=== PATIENT | male | born 1945 | race Caucasian/White ===

== ENCOUNTER 2016-08-09 15:37 | Inpatient (IN) | payer MEDICARE ==
--- NOTE | ~2016-08-09 | CR71 ---
[facility] A Service of [facility] & [facility] RADIOLOGY TEXT RESULTS PATIENT: ANDREIA TEE LOCATION: [address] : 43 UNIT #: [id number] AGE: [address]: Raymundo Rich MD SEX: M ORDER DR: [id number] [facility] [address] [facility]. [place], [place] [address] [id number] I MR#: [id number] Acc #: [id number] NAME: ANDREIA TEE : 1945 SEX: M STUDY DATE/TIME: 08/14/2016 4:22 UNIT: [facility] ROOM: [facility] STUDY DESCRIPTION: CR Chest Single View Attending Physician: Connie Molina M.D. Ordering Physician: Ed Doctor [id number] [facility] Primary Care Physician: Denia Bennett M.D. MEDICAL IMAGING REPORT This report is preliminary unless electronic signature is present EXAM Portable AP view of the chest COMPARISON August 13, 2016 and August 12, 2016 INDICATIONS 71-year-old male with acute respiratory failure for 5 days, requiring ventilatory support. FINDINGS/IMPRESSION Endotracheal tube is very high-riding with the tip located 9.6 cm above the david. Feeding tube not traced below level of the stomach where passes off the bottom aspect of the image. The right upper extremity PICC terminates in the SVC. No evidence of pneumothorax. There are low lung volumes with slightly increased plate-like opacities in the right lung base favoring atelectasis. Stable left basilar atelectasis versus pneumonia. Cardiomediastinal silhouette is likely within normal limits for portable technique and low lung volumes. There may be persistent small left pleural effusion. The findings of high-riding endotracheal tube were relayed to the patient's nurse at the time of this dictation. Dictated by... Ismael Chris M.D. THIS IS AN ELECTRONICALLY VERIFIED REPORT Ismael Chris M.D. at 08/19/2016 9:23 AM Paulina TD: 08/14/2016 06:24 JOB #: [id number] [facility] A Service of [facility] & [facility] RADIOLOGY TEXT RESULTS PATIENT: ANDREIA TEE LOCATION: CICCU2 CICCU2-09 : 43 UNIT #: [id number] AGE: [address]: Raymundo Rich MD SEX: M ORDER DR: MEDICAL IMAGING REPORT COPY
--- NOTE | ~2016-08-09 | XA166 ---
[facility] A Service of [facility] & [facility] RADIOLOGY TEXT RESULTS PATIENT: ANDREIA TEE LOCATION: [address] : 43 UNIT #: [id number] AGE: [address]: Raymundo Rich MD SEX: M ORDER DR: [id number] [place] [id number] [facility]. [place], [place] [address] [id number] I MR#: [id number] Acc #: [id number] NAME: ANDREIA TEE : 1945 SEX: M STUDY DATE/TIME: 08/19/2016 14:41 UNIT: [facility] ROOM: [facility] STUDY DESCRIPTION: XA PICC Line Placement WO Port Attending Physician: Raymundo Rich M.D. Ordering Physician: Osvaldo Haney M.D. Primary Care Physician: Denia Bennett M.D. MEDICAL IMAGING REPORT This report is preliminary unless electronic signature is present EXAM PICC line insertion, 08/19/2016 HISTORY IV access needed. PRE-PROCEDURE The procedure was explained to the patient and/or patient patient registration representative including risks, benefits, potential complications and potential for alternative forms of treatment. Informed consent was obtained, and prior to initiating the procedure a formal timeout procedure was performed. PROCEDURE Using full standard sterile barrier technique, including caps, gowns, gloves, masks, as well as sterile skin preparation and standard sterile draping, the right arm was prepped and draped in the usual fashion, and real-time sterile ultrasound guidance was used to localize an arm vein and to confirm vessel patency. A hard copy ultrasound image was recorded. After local anesthesia with 1% Xylocaine, the vein was punctured using real-time sterile ultrasound guidance, and an 0.018 guidewire was advanced into the superior vena cava, using fluoroscopic guidance. A 5 Citizen Of [place] dual-lumen PICC was then measured and deployed with the tip positioned in the superior vena cava. The position of the line was documented with a radiographic image. The line was secured in place with an adhesive dressing and an antibiotic patch was applied. Total fluoro time was 0.1 minutes. Single spot image. IMPRESSION Successful placement of a Citizen [place] lumen PowerPICC via the arm under ultrasound and fluoroscopic guidance. The tip of the PICC is in good position in the superior vena cava. [facility] A Service of [facility] RADIOLOGY TEXT RESULTS PATIENT: ANDREIA TEE LOCATION: CICCU2 CICCU2-09 : 43 UNIT #: [id number] AGE: [address]: Raymundo Rich MD SEX: M ORDER DR: Dictated by... Paul Dean M.D. THIS IS AN ELECTRONICALLY VERIFIED REPORT Paul Dean M.D. at 08/20/2016 11:48 AM EVON/maria esther TD: 08/20/2016 05:31 JOB #: [id number] MEDICAL IMAGING REPORT COPY
--- NOTE | ~2016-08-09 | CR7 ---
[facility] A Service of [facility] & [facility] RADIOLOGY TEXT RESULTS PATIENT: ANDREIA TEE LOCATION: [facility] 338-01 : 43 UNIT #: [id number] AGE: [address]: Connie Molina MD SEX: M ORDER DR: [id number] [facility] [address] [facility]. [place], [place] [address] [id number] I MR#: [id number] Acc #: [id number] NAME: ANDREIA TEE : 1945 SEX: M STUDY DATE/TIME: 08/24/2016 10:27 [facility]: [facility] STUDY DESCRIPTION: CR Abdomen Single AP View Attending Physician: Connie Molina M.D. Ordering Physician: Connie Molina M.D. Primary Care Physician: Denia Bennett M.D. MEDICAL IMAGING REPORT This report is preliminary unless electronic signature is present EXAM AP of the abdomen INDICATIONS 71-year-old male with abdominal distension for 2 days. Compared with 08/12/2016. FINDINGS Dobbhoff tube tip projects over the region of the stomach. Gas within the colon. No dilated loops of bowel. Degenerative changes lumbar spine. Atelectasis left base. IMPRESSION Nonobstructed bowel gas pattern. Dobbhoff tube tip projects over the region of the stomach. Dictated by... Rajat Harris M.D. THIS IS AN ELECTRONICALLY VERIFIED REPORT Rajat Harris M.D. at 08/25/2016 7:41 AM ARS/psc TD: 08/24/2016 16:39 JOB #: [id number] MEDICAL IMAGING REPORT COPY
--- NOTE | ~2016-08-09 | CT71 ---
[facility] A Service [facility] RADIOLOGY TEXT RESULTS PATIENT: ANDREIA TEE LOCATION: [facility] 338-01 : 43 UNIT #: [id number] AGE: [address]: Connie Molina MD SEX: M ORDER DR: [id number] [place] [address] [facility]. [place], [place] [address] [id number] I MR#: [id number] Acc #: [id number] NAME: ANDREIA TEE : 1945 SEX: M STUDY DATE/TIME: 08/23/2016 11:35 UNIT: [facility] ROOM: [facility] STUDY DESCRIPTION: CT Head Wo Contrast Attending Physician: Connie Molina M.D. Ordering Physician: Connie oMlina M.D. Primary Care Physician: Denia Bennett M.D. MEDICAL IMAGING REPORT This report is preliminary unless electronic signature is present EXAM CT head without contrast. HISTORY Confusion. New onset confusion. Encephalopathy, alcohol abuse. TECHNIQUE Unenhanced images were obtained from the brain. This CT exam was performed with one or more of the following radiation dose reduction techniques: automatic exposure control, adjustment of mA and/or kV according to patient size, and iterative reconstruction. COMPARISON 08/09/2016. FINDINGS There is generalized atrophy. There are no masses or extraaxial fluid collections or hemorrhage. IMPRESSION Generalized atrophy, otherwise normal. Dictated by... Emmanuel Beltran M.D. THIS IS AN ELECTRONICALLY VERIFIED REPORT Emmanuel Beltran M.D. at 08/24/2016 3:07 PM FEL/gz TD: 08/24/2016 06:17 JOB #: [id number] [facility] A Service of [facility] RADIOLOGY TEXT RESULTS PATIENT: ANDREIA TEE LOCATION: [facility] 338-01 : 43 UNIT #: [id number] AGE: [address]: Connie Molina MD SEX: M ORDER DR: MEDICAL IMAGING REPORT COPY
--- NOTE | ~2016-08-09 | CT4 ---
[facility] A Service of [facility] & [facility] RADIOLOGY TEXT RESULTS PATIENT: ANDREIA TEE LOCATION: [address] : 43 UNIT #: [id number] AGE: [address]: Raymundo Rich MD SEX: M ORDER DR: [id number] [facility] [address] [facility]. [place], [place] [address] [id number] I MR#: [id number] Acc #: [id number] NAME: ANDREIA TEE : 1945 SEX: M STUDY DATE/TIME: 08/19/2016 15:11 UNIT: CICCU2 ROOM: [facility] STUDY DESCRIPTION: CT Abd and Pelv Wo Cont Attending Physician: Raymundo Rich M.D. Ordering Physician: Domi Rucker M.D. Primary Care Physician: Denia Bennett M.D. MEDICAL IMAGING REPORT This report is preliminary unless electronic signature is present EXAM CT of the abdomen and pelvis without contrast, 08/19/2016 INDICATION Fever, bladder infection diagnosed 08/09/2016. The patient also has anemia. TECHNIQUE Axial CT images were obtained from dome of the diaphragm through the symphysis pubis. No oral or intravenous contrast material was administered. This CT exam was performed with one or more of the following radiation dose reduction techniques: automatic exposure control, adjustment of mA and/or kV according to patient size, and iterative reconstruction. FINDINGS Images through the lung bases demonstrates bibasilar atelectasis and probably also some baseline fibrotic changes. A weighted enteric feeding tube is seen extending into the proximal body of the stomach. Bilateral gynecomastia is noted. Patient does have a cirrhotic morphology to the liver. Spleen is enlarged at 14.2 cm in AP dimensions. No focal hepatic lesions are seen on these unenhanced images. Gallbladder appears unremarkable. Pancreas is atrophic, adrenal glands are normal in appearance. Nonobstructing stone is seen within the inferior pole of the right kidney. Left kidney is atrophic with some areas of cortical calcifications. There are some shotty retroperitoneal lymph nodes. There is no evidence of mechanical bowel obstruction. Bella catheter is present within the urinary bladder which is decompressed. Prostate gland is within normal limits. There is no evidence of mechanical bowel obstruction. Patient does have colonic diverticulosis without any evidence of diverticulitis. The appendix is visualized and is within normal limits. I do not see any free fluid or adenopathy within the STS. [facility] A Service of [facility] & [facility] RADIOLOGY TEXT RESULTS PATIENT: ANDREIA TEE [facility] UNIT #: [id number] AGE: [address]: Raymundo Rich MD SEX: M ORDER DR: pelvis. Review of bony windows demonstrates discogenic degenerative disease. There is atherosclerotic involvement of the abdominal aorta which continues into the iliac vessels. IMPRESSION 1. Some bibasilar atelectasis and some suspected background fibrotic changes noted at the lung bases bilaterally. 2. Cirrhotic morphology to the liver with evidence of portal hypertension as the patient has splenomegaly. No ascites is seen. 3. Nonobstructing right renal stone. 4. Atrophy of the left kidney as well as of the pancreas. 5. Colonic diverticulosis without any evidence of diverticulitis. Dictated by... Ashlie Hernández M.D. THIS IS AN ELECTRONICALLY VERIFIED REPORT Ashlie Hernández M.D. at 08/20/2016 10:49 AM BRIAN/maria esther TD: 08/19/2016 23:24 JOB #: [id number] MEDICAL IMAGING REPORT COPY
--- NOTE | ~2016-08-09 | FU ---
[facility] Nutrition Therapy DATE: 08/15/16 Patient: ANDREIA TEE Physician: LENARD Address: [address] [place] [address] Room/Bed: [address], Zip: [place] [address] Admit Date: 08/09/16 Date of : 43 Height: 5 11 Weight: 276 125.5 NUTRITION MONITORING/FOLLOW-UP: Reason: PT SEEN FOR FOLLOW-UP/ENTERAL NUTRITION SUPPORT DX: AMS, ETOH INTOX, DTs, COPD Anthropometrics: 5'11", WT: 276# (125 KG), BMI: 38.5 -ADMIT WEIGHT: 265# (120 KG) Labs: GLU: 194, BUN: 29, CREA: 1.9, CA+:7.7, ALB: 2.2, AST: 73, GFR: 37.1 Meds: PROPOFOL (CURRENTLY OFF), FUROSEMIDE, COLACE, NOVOLOG, PEPCID, PHENERGAN, LOPRESSOR I&O's: 1806/3542, 2 BMs NOTED Skin: (R) PEDAL/ANKLE 1+ EDEMA; BILATERAL HANDS GENERAL EDEMA; TRUNK GENERALIZED EDEMA Estimated Nutrition Needs: [id number] KCAL 94-117 G PRO Assessment: CHART REVIEWED AND EVENTS NOTED. PT SEEN FOR ENTERAL NUTRITION SUPPORT FOLLOW-UP. PT REMAINS INTUBATED BUT PLANS IN PLACE FOR WEANING TRIAL TODAY. PROPOFOL CURRENTLY OFF. PT RECEIVING ALTERNATIVE NUTRITION SUPPORT OF GLUCERNA 1.5 @ 45 ML/HR. PER RN AND CHART, PT TOLERATING ENTERAL NUTRITION AND NOTING NO ISSUES. FAMILY IN ROOM REPORTED NO DIET QUESTIONS AT THIS TIME. RD TO CONTINUE TO FOLLOW. -TUBE FEEDS PROVIDE 1620 KCAL, 89 G PRO, 821 ML FREE H20 Dx: INADEQUATE ORAL INTAKE R/T DX, CURRENT CONDITION AEB PT INTUBATED, PT RECEIVING ALTERNATIVE NUTRITION SUPPORT. Intervention: 1. ENTERAL NUTRITION SUPPORT Monitoring, Evaluation and Goals: GOALS NOT MET 1. ENTERAL NUTRITION; TOLERATE EN AT GOAL RATE W/NO SIGNS OF INTOLERANCE 2. PO INTAKE; ADVANCE DIET TOLERATED W/NO C/O N/V/D (PO>50%) 3. LABS; WNL 4. GI; PROMOTE REGULAR GI FUNCTION MONITOR: -WEIGHTS -TF RATE/RESIDUALS -EXTUBATION? -DIET ADVANCEMENT? [facility] Nutrition Therapy DATE: 08/15/16 Patient: ANDREIA TEE Physician: LENARD Address: [address] [place] [address] Room/Bed: [address], Zip: [place] [address] Admit Date: 08/09/16 Date of : 43 Height: 5 11 Weight: 276 125.5 Recommendations: 1. RECOMMEND TO ADVANCE CURRENT ENTERAL NUTRITION SUPPORT OF GLUCERNA 1.5 TO GOAL RATE OF 60 ML/HR (IF PT REMAINS INTUBATED OR UNABLE TO TOLERATE PO INTAKE ONCE EXTUBATED) -PROVIDES 2160 KCAL, 118 G PRO, 1094 ML FREE H20 CONTINUE FREE H20 FLUSHES PER MD 2. IF PT EXTUBATED, ADVANCE DIET PER MECHANICAL TECHNOLOGIST + CC/HH RD WILL F/U PER PROTOCOL PT IS MOD/SEVERELY COMPROMISED Respectfully, ALEX DUNN MS, RD, LD Food and Nutritional Services [facility] cc: client file
--- NOTE | ~2016-08-09 | US140 ---
[facility] A Service of [facility] & [facility] RADIOLOGY TEXT RESULTS PATIENT: ANDREIA TEE LOCATION: [address] : 43 UNIT #: [id number] AGE: [address]: Connie Molina MD SEX: M ORDER DR: [id number] [facility] [address] [facility]. [place], [place] [address] [id number] I MR#: [id number] Acc #: [id number] NAME: ANDREIA TEE : 1945 SEX: M STUDY DATE/TIME: UNIT: [facility] ROOM: [facility] STUDY DESCRIPTION: US UE Veins Unilat or Ltd Stdy Attending Physician: Connie Molina M.D. Ordering Physician: Harriet Johnson M.D. Primary Care Physician: Denia Bennett M.D. MEDICAL IMAGING REPORT This report is preliminary unless electronic signature is present EXAM Right upper extremity venous Doppler 08/15/2016 at 2036 hours INDICATION Swelling in the upper extremity that started this morning. Warmness to touch. FINDINGS Swann-scale, color flow, and spectral Doppler waveform analysis is performed of the right upper extremity venous system. All the venous structures demonstrate normal compressibility and color flow. No superficial or deep venous thrombosis is seen. IMPRESSION Negative right upper extremity venous Doppler. Dictated by... Devon Brown Jr., M.D. THIS IS AN ELECTRONICALLY VERIFIED REPORT Devon Brown Jr., M.D. at 08/16/2016 10:59 PM CHEPE/kathryn TD: 08/16/2016 15:31 JOB #: [id number] MEDICAL IMAGING REPORT COPY
--- NOTE | ~2016-08-09 | DS ---
Unit #: [id number] #: [id number] Patient: ANDREIA TEE [id number] [address] [place], [place] [address] [id number] I MR#: [id number] NAME: ANDREIA TEE ROOM: 338 Age: 71 Sex: M Admission Date: 08/09/2016 : 1945 Discharge Date: 08/26/2016 Attending Physician: Connie Molina M.D. Primary Care Physician: Denia Bennett M.D. DISCHARGE SUMMARY REASON FOR ADMISSION 1. Mental status change. 2. Alcohol intoxication. 3. Delirium tremens. HISTORY OF PRESENT ILLNESS/HOSPITAL COURSE The patient is a very pleasant 71-year-old male. At home apparently he has had had increased alcohol intake over numerous years, was brought in by his after he had been having frequent falls as well as agitation and aggressive behavior secondary to active DTs. Initially he was intubated, place on appropriate ventilator support and since initial part of hospital stay consultation was placed to Dr. Babb. Eventually, and after a difficult wean, he was extubated, placed on O2 via nasal cannula and he was placed on a telemetry floor. Through his hospital course patient was noted to have a left ankle fracture. Orthopedic services did perform a left lateral malleolar open ankle reduction as well as internal fixation. Even postoperatively after the fixation he did have a compromised respiratory function as pulmonary services followed at that point in time as well. He was noted to have chronic pancytopenia secondary to chronic alcohol abuse. Dr. Casper of hematology services was consulted as well. Secondary to utudp-et-qvxbulf kidney disease Dr. Bello and denise followed the patient through hospital course. Eventually, and after he was extubated and placed on telemetry floor, secondary to cirrhosis his mental status never showed any improvement, he was observed for almost seven to eight days without any form of sedation. He mumbled frequently, became very agitated, aggressive, was not able to follow any commands and/or direction. Although he was awake he was alert and oriented x0. His , who was present at bedside throughout his hospital course, and myself had numerous discussions and ultimately and after review by pulmonary, nephrology, hematology and discussion with the patient's , a decision has been made for the patient to be DNR as well as comfort care measures only. Hospice services were consulted. Patient will be subsequently transferred to inpatient hospice for ongoing care. At this point in time his encephalopathy, which has lead to incoherent speech, mumbling frequently, is likely secondary to underlying cirrhosis and unfortunately is irreversible at this point in time. His prognosis is Unit #: [id number] #: [id number] Patient: ANDREIA TEE quite poor. FINAL DISCHARGE DIAGNOSIS 1. Hepatic encephalopathy, multifactorial in origin, likely secondary to alcohol abuse. 2. Delirium tremens as well as underlying dementia. 3. End-stage cirrhosis. 4. Chronic pancytopenia secondary to end-stage cirrhosis. 5. Alcohol abuse. 6. Acute respiratory failure. 7. Chronic kidney disease. 8. Acute kidney injury. 9. Urinary tract infection. 10. Sepsis on admission. 11. Fevers. 12. Left ankle fracture status post open reduction and internal fixation. 13. Chronic obstructive pulmonary disease history. 14. Severe morbid obesity. 15. Significant decline in mental status function. PROGNOSIS Poor. DISPOSITION To inpatient hospice for ongoing care. Time spent in the coordination of this discharge, chart review and discussion with family, , as well as in review with hospice team is greater than 55 minutes. Dictated by... Connie Molina M.D. CORINNE/diomedes TD: 08/26/2016 15:52 JOB #: [id number] DISCHARGE SUMMARY X Connie Molina MD X DISCHARGE SUMMARY
--- NOTE | ~2016-08-09 | DS ---
Unit #: [id number] #: [id number] Patient: ANDREIA TEE [id number] [address] [address] [id number] I MR#: [id number] NAME: ANDREIA TEE ROOM: CICCU2 Age: 71 Sex: M Admission Date: 08/09/2016 : 1945 Discharge Date: Attending Physician: Raymundo Rihc M.D. Primary Care Physician: Denia Bennett M.D. DISCHARGE SUMMARY REASON FOR ADMISSION Mental status change, alcohol intoxication, and DTs. HISTORY OF PRESENT ILLNESS AND HOSPITAL COURSE The patient is a 71-year-old male. Please see H and P for complete details of initial part of the hospital stay. He was noted to have right leg fracture as well on admission. Secondary to active DTs as well as respiratory compromise, the patient was intubated through the hospital course and has been in the ICU since. Consultation was placed to Dr. Babb. Through hospital course as well, the patient underwent ankle fracture repair per Orthopedic Services with left lateral malleolar ankle open reduction and internal fixation. Postoperatively, he continued to have mild respiratory distress and compromised airway and decreased mentation and therefore he remained intubated. He does have chronic pancytopenia likely secondary to chronic alcohol abuse. We did consult Hematology Services for the same. He does have acute on chronic kidney disease with baseline creatinine likely close to 2. Dr. Bello and associates have been following through hospital course. Today, attempts were being made for the patient to be weaned off the ventilator. I have reviewed his overall plan of care and disposition and overall prognosis being guarded at best with the patient's and she is well aware. CURRENT CLINICAL DIAGNOSES As of 08/17/2016: 1. Acute respiratory failure, currently on vent support. 2. Encephalopathy, likely multifactorial in origin secondary to alcohol abuse as well as delirium tremens and alcohol withdrawal. 3. Alcohol abuse. 4. Chronic kidney disease. Unit #: [id number] #: [id number] Patient: ANDREIA TEE 5. Urinary tract infection. 6. Fevers. 7. Sepsis on admission. 8. Ankle fracture, status post open reduction and internal fixation. 9. Chronic pancytopenia. 10. Chronic obstructive pulmonary disease. 11. Morbid obesity. FURTHER DISPOSITION AND FURTHER HOSPITAL COURSE Per my associate at the time of discharge. Dictated by... Tay Phelps/yue TD: 08/20/2016 16:04 JOB #: [id number] DISCHARGE SUMMARY X Connie Molina MD X DISCHARGE SUMMARY
--- NOTE | ~2016-08-09 | CR72 ---
[facility] A Service of [facility] & [facility] RADIOLOGY TEXT RESULTS PATIENT: ANDREIA TEE LOCATION: [address] : 43 UNIT #: [id number] AGE: [address]: Raymundo Rich MD SEX: M ORDER DR: [id number] [facility] [address] [facility]. [place], [place] [address] [id number] I MR#: [id number] Acc #: [id number] NAME: ANDREIA TEE : 1945 SEX: M STUDY DATE/TIME: 08/13/2016 2:31 UNIT: [facility] ROOM: [facility] STUDY DESCRIPTION: CR Chest Single View Portable Attending Physician: Connie Molina M.D. Ordering Physician: Osvaldo Haney M.D. Primary Care Physician: Denia Bennett M.D. MEDICAL IMAGING REPORT This report is preliminary unless electronic signature is present EXAM Portable AP view of the chest COMPARISON August 12, 2016 at 4:07 p.m. and 6:07 a.m. as well as August 11, 2016 at 5:09 a.m. INDICATION 71-year-old male with respiratory failure requiring ventilatory support for 4 days. Current urinary tract infection. History of hypertension. FINDINGS AND IMPRESSION Endotracheal tube is no longer seen. Enteric tube not traced below the level of the diaphragm, possibly due to under-penetration. Right central venous catheter tip terminates in the upper SVC. No evidence of pneumothorax. There is marked improvement in interstitial opacities throughout the right lung without current right-sided airspace disease. There is persistent left basilar atelectasis versus pneumonia with possibly associated small pleural effusion. Dictated by... Ismael Chris M.D. THIS IS AN ELECTRONICALLY VERIFIED REPORT Ismael Chris M.D. at 08/18/2016 8:12 PM Shea TD: 08/13/2016 09:33 JOB #: [id number] MEDICAL IMAGING REPORT COPY
--- NOTE | ~2016-08-09 | CR72 ---
[facility] A Service of [facility] & [facility] RADIOLOGY TEXT RESULTS PATIENT: ADNREIA TEE LOCATION: [address] : [birth year] UNIT #: [id number] AGE: [address]: Raymundo Rich MD SEX: M ORDER DR: [id number] [facility] [address] [facility]. [place], [place] [address] [id number] I MR#: [id number] Acc #: [id number] NAME: ANDREIA TEE : 1945 SEX: M STUDY DATE/TIME: 08/20/2016 0235 UNIT: [facility] ROOM: [facility] STUDY DESCRIPTION: CR Chest Single View Portable Attending Physician: Raymundo Rich M.D. Ordering Physician: Andrei Prado M.D. Primary Care Physician: Denia Bennett M.D. MEDICAL IMAGING REPORT This report is preliminary unless electronic signature is present EXAM Portable chest, 08/20 at 0235 INDICATION Respiratory failure for 11 days after ankle ORIF. History of COPD. FINDINGS AP portable chest compared with 08/18/2016. Cardiomegaly is stable. Right arm PICC in the SVC. Atherosclerotic disease in the aorta. Lungs are clear. No pneumothorax. Dictated by... Devon Brown Jr., M.D. THIS IS AN ELECTRONICALLY VERIFIED REPORT Devon Brown Jr., M.D. at 08/20/2016 9:16 PM CHEPE/nilesh TD: 08/20/2016 10:22 JOB #: [id number] MEDICAL IMAGING REPORT COPY
--- NOTE | ~2016-08-09 | FU ---
[facility] Nutrition Therapy DATE: 08/25/16 Patient: ANDREIA TEE Physician: LENARD Address: [address] [place] [address] Room/Bed: [address] [place] [address], Zip: [place] [address] Admit Date: 08/09/16 Date of : 43 Height: 5 11 Weight: 261 118.8 NUTRITION MONITORING/FOLLOW-UP: Reason: Enteral nutrition follow up Anthropometrics: Current weight 08/25: 118.8 kg (Lift) Labs: Gluc 160 BUN 49 Creat 2.0 Ca++ 8.3 NH3+ 45 Accuchecks 158-203 GFR 35 Meds: Lactulose, NaCl, levemir, novolog, pepcid, colace I&O's: 2522/1809, last BM 08/24, FMS to BSD Skin: reviewed, no changes. Edema: Right pedal/ ankle- generalized Right hand/ arm- trace Estimated Nutrition Needs: 0293-8903 kcals (15-20 kcals/kg ABW) 94-117 grams protein (1.2-1.5 grams/kg IBW) Assessment: Chart reviewed, events noted. Pt has been transfered to tele floor, continues on enteral nutrition with Glucerna 1.5 @ 50 mL/hr currently (goal is 60 mL/hr). Per pump history, the pt has received 66% of his goal volume of enteral nutrition. Per information in chart, it appears KUB was ordered yesterday to verify DHT placement. Pt does not follow commands, and is awake but moving around in the bed at time of RD visit. Reglan has been discontinued per MD note. Hospice consult has been ordered, and "No PEG for now" written in progress notes. It does not seem that the pt would be appropriate for PO intake at this time, and TRANSFER SPECIALIST has not seen as far as RD can tell from chart. RD will continue to follow the pt. Please see recommendations below. Dx: Inadequate oral intake RT Dx, clinical condition AEB need for EN- ACTIVE, NO IMPROVEMENT Intervention: 1. Enteral nutrition 2. TRANSFER SPECIALIST once appropriate Monitoring, Evaluation and Goals: NOT MET/ IN PROGRESS 1. Enteral nutrition; provide >80% goal volume x 24 hrs 2. Labs; WNL 3. Weight; prevent unintentional weight loss [facility] Nutrition Therapy DATE: 08/25/16 Patient: ANDREIA TEE Physician: LENARD Address: [address] [place] [address] Room/Bed: [address] [place] [address], Zip: [place] [address] Admit Date: 08/09/16 Date of : 43 Height: 5 11 Weight: 261 118.8 4. GI; promote regular GI function Recommendations: 1. Once medically feasible, increase Glucerna 1.5 to goal of 60 mL/hr to provide: 2160 kcals/ 118 grams protein/ 1094 mL free H20 2. Once the pt is more alert, recommend TRANSFER SPECIALIST evaluation to determine if he can safely tolerate PO intake. Advance diet per TRANSFER SPECIALIST recommendations + HH/CC diet restrictions. Pt is at moderate nutritional risk. RD will continue to follow. Status: Respectfully, MADELYN VILLEGAS RD, LD Food and Nutritional Services [facility] cc: client file
--- NOTE | ~2016-08-09 | CR72 ---
[facility] A Service of [facility] & [facility] RADIOLOGY TEXT RESULTS PATIENT: ANDREIA TEE LOCATION: [address] : 43 UNIT #: [id number] AGE: [address]: Connie Molina MD SEX: M ORDER DR: [id number] [facility] [address] [facility]. [place], [place] [address] [id number] I MR#: [id number] Acc #: [id number] NAME: ANDREIA TEE : 1945 SEX: M STUDY DATE/TIME: 08/12/2016 16:07 UNIT: [facility] ROOM: [facility] STUDY DESCRIPTION: CR Chest Single View Portable Attending Physician: Connie Molina M.D. Ordering Physician: Osvaldo Haney M.D. Primary Care Physician: Denia Bennett M.D. MEDICAL IMAGING REPORT This report is preliminary unless electronic signature is present EXAM Portable chest INDICATIONS Decreased oxygen saturation, evaluate endotracheal tube placement. COMPARISON Earlier this same day. FINDINGS This portable view of the chest shows an endotracheal tube has been added and the tip is 4 cm above the david. Mild interstitial prominence is present, but there are no focal infiltrates. Dictated by... Emmanuel Beltran M.D. THIS IS AN ELECTRONICALLY VERIFIED REPORT Emmanuel Beltran M.D. at 08/13/2016 8:20 AM NALDO/elan TD: 08/12/2016 20:47 JOB #: [id number] MEDICAL IMAGING REPORT COPY
--- NOTE | ~2016-08-09 | CO ---
Unit #: [id number] #: [id number] Patient: ANDREIA TEE [id number] [address] [address] [id number] I MR#: [id number] NAME: ANDREIA TEE ROOM: CICCU2 Age: 71 Sex: M Admission Date: 08/09/2016 : 1945 Attending Physician: Lulu Zazueta M.D. Primary Care Physician: Denia Bennett M.D. Consultation Date: 08/11/2016 CONSULTATION REPORT REASON FOR CONSULTATION Left ankle fracture. HISTORY OF PRESENT ILLNESS Mr. Tee is a pleasant 71-year-old male with a history of 1-week-old fall. He was ambulating at home prior to his admission. He was admitted for altered mental status. Most of the history was gathered from his . She reports that he has had frequent falls. He was currently being treated in a CAM walker boot. The patient admits to pain and swelling at the ankle. He is still has feeling to the ankle and he is able to wiggle his toes. He admits to discomfort with ambulation and any movement. The majority of his pain is over the lateral malleolus. PAST MEDICAL HISTORY Significant for; 1. Chronic kidney disease. 2. Congestive heart failure. 3. COPD. 4. Obstructive sleep apnea. 5. Hypertension. 6. Type 2 diabetes. 7. Gout. 8. Hyperlipidemia. 9. GERD. 10. Peripheral neuropathy. 11. Pulmonary hypertension. 12. Alcohol abuse. MEDICATIONS Include aspirin, Combivent, Lasix, Neurontin, glipizide, Toprol, pravastatin, Zoloft, losartan, antacid, hydrocodone, and Bactrim. ALLERGIES No known drug allergies. PAST SURGICAL HISTORY Significant for tonsillectomy. SOCIAL HISTORY The patient lives at home with his . He smokes half a pack of cigarettes a day and drinks alcohol. The patient reports he drinks about a pint of whiskey a day and denies any illicit drug use. Unit #: [id number] #: [id number] Patient: ANDREIA TEE FAMILY HISTORY Insignificant. REVIEW OF SYSTEMS Ten organ systems reviewed. The patient denies any blurry vision, congestion, sore throat, shortness of breath chest pain, abdominal pain, urinary incontinence, numbness, tingling, skin ulcers or lesions, anxiety, depression. Positive for joint pain. PHYSICAL EXAMINATION GENERAL: No acute distress, alert, and oriented x3. VITAL SIGNS: Temperature 98.2, pulse 78, respirations 23, blood pressure 133/59. HEENT: PERRLA. Nonicteric sclerae. THORAX: Trachea midline. No thyromegaly. CARDIAC: S1, S2. No extra sounds. No murmurs. LUNGS: Clear to auscultation. No rales or rhonchi. ABDOMEN: Nondistended and nontender. Positive bowel sounds. : Deferred. MUSCULOSKELETAL: Positive ecchymosis. 2+ dorsalis pedis bilateral pulses. NEUROLOGIC: II through XII intact. SKIN: Cool and dry. PSYCH: Good insight and judgment. Mood and affect are pleasant. DIAGNOSTIC STUDIES LABORATORY RESULTS: On admission, white count is 5.5, hemoglobin 7.7, hematocrit 22.6, platelets 48. INR is 1.3. Sodium 141, potassium 3.2, chloride 110, bicarb 26, BUN 47, creatinine 2.5, glucose 119. IMAGING STUDIES: X-rays; 2-views of the left ankle ordered and reviewed which shows a displaced left distal fibular fracture with mortise disruption. ASSESSMENT Left ankle fracture. PLAN I have discussed treatment options with the patient and the patient's , who is at the bedside. I have recommended a left ankle ORIF to be done by Dr. Arteaga pending medical clearance. Risks and benefits of the procedure was explained as well as the description of procedure in its entirety along with any complications. The patient has decided to proceed. We will go ahead and get this scheduled. Get the usual preoperative lab work and testing complete and have the patient medically cleared for surgery. Dictated by... Bogdan Sims for Tay Mcdermott/yue TD: 08/12/2016 00:29 JOB #: [id number] Unit #: [id number] #: [id number] Patient: ANDREIA TEE CONSULTATION REPORT X Clyde,Julianna KIM X CONSULTATION REPORT
--- NOTE | ~2016-08-09 | CR72 ---
[facility] A Service of [facility] & [facility] RADIOLOGY TEXT RESULTS PATIENT: ANDREIA TEE LOCATION: [address] : 43 UNIT #: [id number] AGE: [address]: Connie Molina MD SEX: M ORDER DR: [id number] [facility] [address] [facility]. [place], [place] [address] [id number] I MR#: [id number] Acc #: [id number] NAME: ANDREIA TEE : 1945 SEX: M STUDY DATE/TIME: 08/16/2016 04:54 UNIT: [facility] ROOM: [facility] STUDY DESCRIPTION: CR Chest Single View Portable Attending Physician: Connie Molina M.D. Ordering Physician: Osvaldo Haney M.D. Primary Care Physician: Denia Bennett M.D. MEDICAL IMAGING REPORT This report is preliminary unless electronic signature is present EXAM Portable chest. DATE OF EXAM 08/16/2016 at 04:54. INDICATIONS Respiratory failure. Ventilator patient. History of alcohol abuse. FINDINGS AP portable chest is compared with 08/15/2016. Cardiomegaly stable. ET tube in the mid trachea. Infiltrates at the left base are unchanged, and there is a small volume of left pleural fluid. There is no pneumothorax. Right arm PICC in the SVC. Dictated by... Devon Brown Jr., M.D. THIS IS AN ELECTRONICALLY VERIFIED REPORT Devon Brown Jr., M.D. at 08/16/2016 11:02 PM CHEPE/niles TD: 08/16/2016 18:38 JOB #: [id number] MEDICAL IMAGING REPORT COPY
--- NOTE | ~2016-08-09 | CR72 ---
[facility] A Service of [facility] RADIOLOGY TEXT RESULTS PATIENT: ANDREIA TEE LOCATION: [facility] : 43 UNIT #: [id number] AGE: [address]: DARNELL MACARIO MD SEX: M ORDER DR: [id number] [id number] [place], [place] [address] [id number] E MR#: [id number] Acc #: [id number] NAME: ANDREIA TEE : 1945 SEX: M STUDY DATE/TIME: 08/09/2016 15:54 UNIT: [facility] ROOM: STUDY DESCRIPTION: CR Chest Single View Portable Attending Physician: Raman Kumar M.D. Ordering Physician: Raman Kumar M.D. Primary Care Physician: Denia Bennett M.D. MEDICAL IMAGING REPORT This report is preliminary unless electronic signature is present EXAM Portable chest. DATE OF EXAM 08/09/2016 INDICATIONS Shortness of air for the past 2 days. PROCEDURE Frontal view chest. COMPARISON 05/05/2016 FINDINGS Cardiomegaly is stable. There is no new dense consolidation. No pleural fluid. No pneumothorax. IMPRESSION No active process. Stable cardiomegaly. Dictated by... Will Chan M.D. THIS IS AN ELECTRONICALLY VERIFIED REPORT Will Chan M.D. at 08/11/2016 6:59 AM EED/jt TD: 08/09/2016 18:31 JOB #: [id number] [facility] A Service of [facility] RADIOLOGY TEXT RESULTS PATIENT: ANDREIA TEE LOCATION: [facility] : 43 UNIT #: [id number] AGE: [address]: DARNELL MACARIO MD SEX: M ORDER DR: MEDICAL IMAGING REPORT COPY
--- NOTE | ~2016-08-09 | CR72 ---
[facility] A Service of [facility] & [facility] RADIOLOGY TEXT RESULTS PATIENT: ANDREIA TEE LOCATION: [facility] 338-01 : 43 UNIT #: [id number] AGE: [address]: Connie Molina MD SEX: M ORDER DR: [id number] [facility] [address] [facility]. [place], [place] [address] [id number] I MR#: [id number] Acc #: [id number] NAME: ANDREIA TEE : 1945 SEX: M STUDY DATE/TIME: 08/24/2016 20:01 [facility] STUDY DESCRIPTION: CR Chest Single View Portable Attending Physician: Connie Molina M.D. Ordering Physician: Ed Jesus Pittman M.D. Primary Care Physician: Denia Bennett M.D. MEDICAL IMAGING REPORT This report is preliminary unless electronic signature is present EXAM Portable chest, 08/24/2016 HISTORY Fever, chest congestion, short of breath with COPD exacerbation. Symptoms for 2 days. Benign essential hypertension. FINDINGS There is mild cardiac enlargement. Nasogastric tube has been inserted with the tip below the diaphragm, not visualized. Right arm approach PICC line tip is in the superior vena cava. There is poor inspiratory result with bibasilar atelectasis. The upper lungs are clear. There are no pleural effusions. IMPRESSION No active pulmonary disease. Dictated by... Ollie Miller M.D. THIS IS AN ELECTRONICALLY VERIFIED REPORT Ollie Miller M.D. at 08/25/2016 10:50 AM OCTAVIO/maria esther TD: 08/25/2016 03:30 JOB #: [id number] MEDICAL IMAGING REPORT COPY
--- NOTE | ~2016-08-09 | CR71 ---
[facility] A Service of [facility] & [facility] RADIOLOGY TEXT RESULTS PATIENT: ANDREIA TEE LOCATION: [address] : 43 UNIT #: [id number] AGE: [address]: Raymundo Rich MD SEX: M ORDER DR: [id number] [facility] [address] [facility]. [place], [place] [address] [id number] I MR#: [id number] Acc #: [id number] NAME: ANDREIA TEE : 1945 SEX: M STUDY DATE/TIME: 08/18/2016 6:27 UNIT: [facility] ROOM: [facility] STUDY DESCRIPTION: CR Chest Single View Attending Physician: Raymundo Rich M.D. Ordering Physician: Connie Molina M.D. Primary Care Physician: Denia Bennett M.D. MEDICAL IMAGING REPORT This report is preliminary unless electronic signature is present EXAM Single portable AP view of the chest. INDICATIONS Respiratory failure. Extubation. COMPARISON Compared to 08/17/2016 and 08/16/2016 FINDINGS Endotracheal tube been removed. The enteric tube and the right PICC remain in place. Heart and mediastinal contours are stable. Left lower lobe airspace opacity is similar to the prior study. No pneumothorax. IMPRESSION 1. Interval extubation. 2. No change in the left lower lobe airspace opacity. Dictated by... Dl Ignacio M.D. THIS IS AN ELECTRONICALLY VERIFIED REPORT Dl Ignacio M.D. at 08/19/2016 8:18 AM C/reji TD: 08/18/2016 13:43 JOB #: [id number] MEDICAL IMAGING REPORT COPY
--- NOTE | ~2016-08-09 | A ---
[facility] Nutrition Therapy DATE: 08/13/16 Patient: ANDREIA TEE Physician: LENARD Address: [address] [place] [address] Room/Bed: [address], Zip: [place] [address] Admit Date: 08/09/16 Date of : 43 Height: 5 11 Weight: 276 125.5 NUTRITIONAL ASSESSMENT: REASON: NPO IN ICU ASSESSMENT PT IS 71 Y.O. MALE ADMITTED FOR AMS, ETOH INTOXICATION, DTs, COPD EXAC, (L) FIBIAL FX PMH: ETOH ABUSE, CKD STAGE 2-3, CHF, COPD, KALLIE, HTN, HLD, T2DM, GOUT, GERD, PERIPHERAL NEUROPATHY, CAD Anthropometrics: 5'11", WT: 265# (PER BEDSIDE & FAMILY) (120 KG), BMI: 37.0 Labs: GLU: 167, BUN: 33, CREAT: 1.9, CA+: 7.3, ALB: 2.3, AST: 52, GFR: 37.1 Meds: PROPOFOL, PEPCID, D5%, LOPRESSOR, PHENERGAN, FUROSEMIDE I/O & Bowel function: 3018/1325 Skin Integrity: (L) PEDAL/ANKLE 2+ EDEMA; (R) PEDAL/ANKLE 1+ EDEMA; BUE/BILATERAL HANDS GENERALIZED EDEMA; HIPS/ABD/TRUNK GENERALIZED EDEMA Estimated Nutrition Needs: 8113-3748 KCAL (15-20 KCAL/KG BW) 94-117 G PRO (1.2-1.5 G PRO/KG IBW) FLUIDS CONSISTENT W/KCAL NEEDS OR MANAGE PER MD Assessment: CHART REVIEWED AND EVENTS NOTED. PT SEEN FOR NPO IN ICU ASSESSMENT. PT INTUBATED AND SEDATED W/PROPOFOL (RATE OF 21.6 PROVIDING ~570 KCAL FROM LIPIDS) 2' POST (L) ANKLE SURGERY. AT BEDSIDE REPORTED PT TO HAVE DECREASED PO INTAKE 2' DECREASED APPETITE PAST SEVERAL DAYS PRIOR TO ADMIT. DENIES ANY RECENT WEIGHT LOSS. REPORTED NO DIET QUESTIONS AT THIS TIME. NO CURRENT PLANS IN PLACE FOR ALTERNATIVE NUTRITION SUPPORT AT THIS TIME. RD TO FOLLOW. SEE RECOMMENDATIONS BELOW. Dx: INADEQUATE ORAL INTAKE R/T DX, CURRENT CONDITION AEB PT INTUBATED AND SEDATED, NPO STATUS, ALTERED LAB VALUES. Intervention: 1. NPO Monitoring, Evaluation and Goals: 1. ENTERAL NUTRITION; PROVIDE 100% ESTIMATED NUTRIENT NEEDS; TOLERATE EN AT GOAL W/NO SIGNS OF INTOLERANCE 2. LABS; WNL 3. GI; PROMOTE REGULAR GI FUNCTION [facility] Nutrition Therapy DATE: 08/13/16 Patient: ANDREIA TEE Physician: LENARD Address: [address] [place] [address] Room/Bed: [address], Zip: [place] [address] Admit Date: 08/09/16 Date of : 43 Height: 5 11 Weight: 276 125.5 MONITOR: -WEIGHTS -PLANS FOR SUPPORT -EXTUBATION? -LABS Recommendations: 1. ONCE MEDICALLY FEASIBLE AND PT EXTUBATED, ADVANCE DIET PER SPECIFICATIONS WRITER + CC/HH 2' PMH 2. IF PT REMAINS INTUBATED FOR >24 HOURS, RECOMMEND TO PLACE DHT AND BEGIN ALTERNATIVE NUTRITION SUPPORT OF GLUCERNA 1.5 @ 20 ML/HR, ADVANCE 10 ML q 4 HOURS TO GOAL RATE OF 45 ML/HR +SEDATION + SUGAR-FREE PROSTAT BID -TOTAL PROVIDES 2390 KCAL, 119 G PRO, 821 ML FREE H20 ADD FREE H20 FLUSHES PER MD 3. ONCE PROPOFOL D/C'D, BEGIN ALTERNATIVE NUTRITION SUPPORT OF GLUCERNA 1.5 @ 20 ML/HR, ADVANCE 10 ML q 4 HOURS TO GOAL RATE OF 60 ML/HR -PROVIDES 2160 KCAL, 119 G PRO, 1094 ML FREE H20 ADD FREE H20 FLUSHES PER RD WILL F/U PER PROTOCOL PT IS SEVERELY COMPROMISED Respectfully, ALEX DUNN MS, RD, LD Food and Nutritional Services [facility] cc: client file
--- NOTE | ~2016-08-09 | OR ---
Unit #: [id number] #: [id number] Patient: ANDREIA TEE [id number] [address] [place], [place] [address] [id number] I MR#: [id number] NAME: ANDREIA TEE ROOM: [facility]2 Date of Procedure: 08/09/2016 Admission Date: 08/09/2016 Surgeon: Peter Arteaga M.D. : 1945 Attending Physician: Connie Molina M.D. Primary Care Physician: Denia Bennett M.D. OPERATIVE REPORT PREOPERATIVE DIAGNOSIS Left ankle lateral malleolus ankle fracture. POSTOPERATIVE DIAGNOSIS Left ankle lateral malleolus ankle fracture. PROCEDURES PERFORMED Open reduction and internal fixation of left lateral malleolus ankle fracture. VINYL HANGER Souleymane Friedman CFA. ANESTHESIA General endotracheal. COMPLICATIONS None. SPECIMENS None. DRAINS None. SURGICAL IMPLANTS Shana distal fibular locking plate. INDICATION FOR PROCEDURE Mr. Tee is a 71-year-old male, who presented to the emergency room with left ankle pain and swelling. He was also noted to have UTI and fever. He is an alcoholic and was having withdrawal. He was taken to the ICU. He was noted to have a bimalleolar equivalent ankle fracture with subluxation of the talus due to the lateral malleolus fracture. It was felt he would benefit from ORIF. He was subsequently cleared for surgery. Electrolytes, hemoglobin, platelets corrected for. It was felt he would benefit from ORIF. Risks, benefits, and alternatives of surgery were discussed with the patient's family and informed consent was obtained. Risks include, but not limited to, infection, bleeding, nerve injury, blood clots, risks associated with anesthesia, need for further surgery, and possibly . Unit #: [id number] #: [id number] Patient: ANDREIA TEE DESCRIPTION OF PROCEDURE On 08/12/2016, the patient was seen in the preoperative holding area, where his surgical site was marked. The patient is on scheduled antibiotics. Consent updated. The patient was taken to the operating room and provided general anesthesia. Left lower extremity was prepped and draped in typical sterile fashion. Time-out performed confirming the correct surgical site and procedure. Esmarch used to exsanguinate the leg. A longitudinal incision was made over the fibula. Incision taken down through skin and subcutaneous tissues. Fracture site identified. It was thoroughly debrided. It was provisionally reduced with a clamp. This was checked with fluoroscopy. A distal fibular locking plate was placed. Distal locking screw placed followed by 3 screws proximally in the shaft. A single bicortical screw and 2 locking screws were placed. The remainder of the distal locking screws were filled as well. These were unicortical screws. At this point, fluoroscopy was brought in confirming appropriate reduction of fracture and placement of hardware. Tourniquet released. Hemostasis noted. Wound was thoroughly irrigated with normal saline containing bacitracin. Deep tissue closed with 0 Vicryl followed by 2-0 Vicryl for subcutaneous tissues and renetta for skin. Xeroform, 4x4s, ABD pad, cast padding, and a well-padded posterior splint were placed. The patient was subsequently awakened from general anesthesia in stable condition and taken to PACU postoperatively. POSTOPERATIVE PLAN The patient will be nonweightbearing in the left lower extremity. Ice and elevate. He will continue with medical care in the ICU. He is on standard antibiotics right now. No complications encountered during the surgical procedure. Dictated by... Tay Yi/yue TD: 08/12/2016 22:22 JOB #: [id number] OPERATIVE REPORT X X PROCEDURE OPERATIVE NOTE
--- NOTE | ~2016-08-09 | CR17 ---
[facility] A Service of [facility] & [facility] RADIOLOGY TEXT RESULTS PATIENT: ANDREIA TEE LOCATION: [address] : 43 UNIT #: [id number] AGE: [address]: Lulu Zazueta MD SEX: M ORDER DR: [id number] [facility] [address] [facility]. [place], [place] [address] [id number] I MR#: [id number] Acc #: [id number] NAME: ANDREIA TEE : 1945 SEX: M STUDY DATE/TIME: 08/10/2016 20:26 UNIT: [facility] ROOM: [facility] STUDY DESCRIPTION: CR Ankle 2 Views Lt Attending Physician: Odilon Stevens M.D. Ordering Physician: Jorge Young M.D. Primary Care Physician: Denia Bennett M.D. MEDICAL IMAGING REPORT This report is preliminary unless electronic signature is present EXAM Left ankle 3 views HISTORY Ankle pain and swelling, fell 08/08/2016. FINDINGS 3 views of the left ankle demonstrates further displacement of the patient's short oblique fracture of the distal fibula with 1 full shaft with the lateral displacement of the distal fracture fragment and at least 3 cm or greater of impaction of the fracture. There is disruption of the ankle mortise with lateral subluxation of the talus relative to the ankle mortise and tibial plafond. Several well corticated fragments are seen anterior and medial to the ankle joint which may represent the sequelae of old trauma. No distinct medial malleolar fracture or posterior malleolar fracture seen. Extensive soft tissue swelling noted about the ankle. There is at least 50% lateral dislocation of the talus at the ankle joint. Subtalar joint appears intact. Dictated by... Miah Harris M.D. THIS IS AN ELECTRONICALLY VERIFIED REPORT Miah Harris M.D. at 08/11/2016 5:04 PM ARNALDO/mahamed TD: 08/11/2016 08:02 JOB #: [id number] MEDICAL IMAGING REPORT COPY
--- NOTE | ~2016-08-09 | CR72 ---
[facility] A Service of [facility] & [facility] RADIOLOGY TEXT RESULTS PATIENT: ANDREIA TEE LOCATION: [address] : 43 UNIT #: [id number] AGE: [address]: Raymundo Rich MD SEX: M ORDER DR: [id number] [facility] [address] [facility]. [place], [place] [address] [id number] I MR#: [id number] Acc #: [id number] NAME: ANDREIA TEE : 1945 SEX: M STUDY DATE/TIME: 08/21/2016 05:00 UNIT: [facility] ROOM: [facility] STUDY DESCRIPTION: CR Chest Single View Portable Attending Physician: Raymundo Rich M.D. Ordering Physician: Osvaldo Haney M.D. Primary Care Physician: Denia Bennett M.D. MEDICAL IMAGING REPORT This report is preliminary unless electronic signature is present EXAM Portable chest 08/21/2016 05:00 INDICATION Respiratory failure. History of alcohol abuse. FINDINGS AP portable chest is compared with 08/20/2016. Tubes and lines are unchanged. Cardiomegaly is stable. There is some minimal infiltrate or atelectasis at the left base behind the heart. Lungs are otherwise clear, there is no pneumothorax. Dictated by... Devon Brown Jr., M.D. THIS IS AN ELECTRONICALLY VERIFIED REPORT Devon Brown Jr., M.D. at 08/21/2016 10:03 PM CHEPE/roni TD: 08/21/2016 08:35 JOB #: [id number] MEDICAL IMAGING REPORT COPY
--- NOTE | ~2016-08-09 | CR72 ---
[facility] A Service of [facility] & [facility] RADIOLOGY TEXT RESULTS PATIENT: ANDREIA TEE LOCATION: [address]07[address]24 : 43 UNIT #: [id number] AGE: [address]: Lulu Zazueta MD SEX: M ORDER DR: [id number] [facility] [address] [facility]. [place], [place] [address] [id number] I MR#: [id number] Acc #: [id number] NAME: ANDREIA TEE : 1945 SEX: M STUDY DATE/TIME: 08/11/2016 5:09 UNIT: [facility] ROOM: [facility] STUDY DESCRIPTION: CR Chest Single View Portable Attending Physician: Lulu Zazueta M.D. Ordering Physician: Laith Rosas M.D. Primary Care Physician: Denia Bennett M.D. MEDICAL IMAGING REPORT This report is preliminary unless electronic signature is present EXAM Portable chest. INDICATIONS Confusion, shortness of air for the past 2 days. PROCEDURE Frontal view chest. COMPARISON 08/09/2016. FINDINGS Stable cardiomegaly. No new dense consolidation. No pneumothorax. IMPRESSION Stable chest. Dictated by... Will Chan M.D. THIS IS AN ELECTRONICALLY VERIFIED REPORT Will Chan M.D. at 08/11/2016 4:52 PM EED/gz TD: 08/11/2016 10:36 JOB #: [id number] MEDICAL IMAGING REPORT COPY
--- NOTE | ~2016-08-09 | US77 ---
[facility] A Service of [facility] & [facility] RADIOLOGY TEXT RESULTS PATIENT: ANDREIA TEE LOCATION: [address]24 : 43 UNIT #: [id number] AGE: [address]: Connie Molina MD SEX: M ORDER DR: [id number] [facility] [address] [facility]. [place], [place] [address] [id number] I MR#: [id number] Acc #: [id number] NAME: ANDREIA TEE : 1945 SEX: M STUDY DATE/TIME: 08/11/2016 19:07 UNIT: [facility] ROOM: [facility] STUDY DESCRIPTION: US Kidney Bilateral Complete Attending Physician: Lulu Zazueta M.D. Ordering Physician: Devon Beltran M.D. Primary Care Physician: Denia Bennett M.D. MEDICAL IMAGING REPORT This report is preliminary unless electronic signature is present EXAM Renal ultrasound, 08/11/2016 HISTORY Acute renal insufficiency, abnormal renal function tests, elevated BUN of 47, elevated creatinine of 2.5, abnormally low GFR of 27 today. Hypertension and diabetes. FINDINGS The right kidney measures 13.9 cm, while the left kidney measures 12.4 cm in longitudinal dimensions. There is no evidence of hydronephrosis or nephrolithiasis. No cystic or solid mass lesions were seen on either kidney and there is normal renal cortical echogenicity. The bladder was empty for the exam and therefore poorly visualized. IMPRESSION 1. Negative renal ultrasound. 2. The bladder was empty for the exam and therefore poorly visualized. Dictated by... Ollie Miller M.D. THIS IS AN ELECTRONICALLY VERIFIED REPORT Ollie Miller M.D. at 08/12/2016 4:21 PM KRT/psc TD: 08/12/2016 03:18 JOB #: [id number] MEDICAL IMAGING REPORT COPY
--- NOTE | ~2016-08-09 | EKG ---
PATIENT: ANDERIA TEE UNIT #: [id number] Ventricular Rate: 84 BPM Atrial Rate: 84 BPM P-R Interval: 172 ms QRS Duration: 102 ms Q-T Interval: 404 ms QTC Calculation(Bezet): 477 ms P [place]: 20 degrees Calculated R [place]: -3 degrees Calculated T [place]: -46 degrees Diagnosis Line: Normal sinus rhythm Diagnosis Line: Nonspecific ST and T wave abnormality Diagnosis Line: Abnormal ECG Diagnosis Line: When compared with ECG of 02-MAY-2016 13:53, Diagnosis Line: MI interval has decreased Diagnosis Line: QT has lengthened Diagnosis Line: Confirmed by PHOEBE MONTAGUE MD ([id number]) on Diagnosis Line: 08/10/2016 10:45:53 PM INTERPRETING MD: EMERITA
--- NOTE | ~2016-08-09 | FU ---
[facility] Nutrition Therapy DATE: 08/19/16 Patient: ANDREIA TEE Physician: LENARD Address: [address] [place] [address] Room/Bed: [address], Zip: [place] [id number] Admit Date: 08/09/16 Date of : 41 Height: 5 11 Weight: 266 121 NUTRITION MONITORING/FOLLOW-UP: Reason: Enteral nutrition follow-up Anthropometrics: current wt: 121 kg (266 lbs) Labs: Na 148, glucose 203, POC 204, BUN 54, Creat 2.0, NH3 106, GFR 35.0 Meds: Furosemide, Colace, Novolog (low SSI), Pepcid, Phenergan I&O's: , last BM 08/17 Skin: Pedal/hand edema noted, bruising noted Estimated Nutrition Needs: 2168-0511 kcals per day (15-20 kcals/kg admission wt) 94-117 g protein per day (1.2-1.5 g/kg IBW) Fluids consistent with kcal needs or per MD Assessment: Chart reviewed, events noted. Patient just back from being off the floor, RN unable to round at this time. Enteral feeds with Glucerna 1.5 just restarted, patient has been previously tolerating feeds at goal rate of 60 ml/hr (increased to new goal yesterday since propofol now off), 130-180 ml residuals noted. Patient is on nasal cannula, not appropriate for PO diet at this time. Note weight fluctuations 260-276 lbs since admission. Previous nutrition goals met, nutrition dx remains. See recs below. Dx: Inadequate oral intake r/t dx, clinical condition AEB intubated, need for EN - ACTIVE, NO IMPROVEMENT Intervention: Continue current EN regimen, PO diet once appropriate Monitoring, Evaluation and Goals: MET 1. EN to provide > 80% goal volume x 24 hours. 2. Promote regular GI function. 3. Improvement in lab values (glucose, BUN, creatinine, ammonia). Monitor: Per protocol, criteria to determine if above goals met Recommendations: 1. Continue current enteral nutrition regimen: Glucerna 1.5 @ goal rate of 60 ml/hr to provide 2160 kcals, 118 g protein and 1094 ml water. Suggest increasing free water flushes [facility] Nutrition Therapy DATE: 08/19/16 Patient: ANDREIA RANDAL Physician: LENARD Address: [address] [place] [address] Room/Bed: [address], Zip: [place] [phone] Admit Date: 08/09/16 Date of : 41 Height: 5 11 Weight: 266 121 per MD noting hypernatremia. 2. Consider changing SSI to medium correction scale if necessary noting hyperglycemia. 3. If extubated advance to healthy heart/consistent carb diet per GRE INSTRUCTOR. Status: Moderate nutrition risk Respectfully, Akosua Reynoso RD, LD [facility] cc: client file
--- NOTE | ~2016-08-09 | CR7 ---
[facility] A Service of [facility] & [facility] RADIOLOGY TEXT RESULTS PATIENT: ANDREIA TEE LOCATION: [address] : [birth year] UNIT #: [id number] AGE: [address]: Connie Molina MD SEX: M ORDER DR: [id number] [facility] [address] [facility]. [place], [place] [address] [id number] I MR#: [id number] Acc #: [id number] NAME: ANDREIA TEE : 1945 SEX: M STUDY DATE/TIME: 08/12/2016 17:37 UNIT: [facility] ROOM: [facility] STUDY DESCRIPTION: CR Abdomen Single AP View Attending Physician: Connie Molina M.D. Ordering Physician: Osvaldo Haney M.D. Primary Care Physician: Denia Bennett M.D. MEDICAL IMAGING REPORT This report is preliminary unless electronic signature is present EXAM Frontal abdomen, 08/12/2016 INDICATIONS Dobbhoff tube placement today. TECHNIQUE Frontal abdomen, no comparison. FINDINGS There is motion degradation. The tip of the enteric tube is at the level of the mid to distal body stomach. Streaky opacities in the left lung base may reflect atelectasis or pneumonia. Entire abdomen not included in the field of view. IMPRESSION Enteric tube tip is at the level of the mid to distal body stomach. Dictated by... Bruce Lisa M.D. THIS IS AN ELECTRONICALLY VERIFIED REPORT Bruce Lisa M.D. at 08/13/2016 7:44 AM NASEEM/elan TD: 08/13/2016 02:37 JOB #: [id number] MEDICAL IMAGING REPORT COPY
--- NOTE | ~2016-08-09 | HP ---
Unit #: [id number] #: [id number] Patient: ANDREIA TEE [id number] [address] [address] [id number] I MR#: [id number] NAME: ANDREIA TEE ROOM: [facility] Age: 71 Sex: M Admission Date: 08/09/2016 : 1945 Attending Physician: Odilon Stevens M.D. Primary Care Physician: Denia Bennett M.D. HISTORY AND PHYSICAL CHIEF COMPLAINT Altered mental status. HISTORY OF PRESENT ILLNESS The patient is a 71-year-old male with history of chronic kidney disease, stage 3, hypertension, hyperlipidemia, diastolic congestive heart failure, chronic pulmonary disease, obstructive sleep apnea, diabetes type 2, gastroesophageal reflux disease, brought to the emergency room with the worsening confusion. The patient had recurrent falls and the patient had a fibular fracture two weeks ago and is on the boot by the emergency room physician at this time. The patient was drinking a pint of whiskey everyday and the last time was early this morning. The patient is confused and lethargic and unable to give any history as the patient received multiple doses of Ativan for the agitation and withdrawal symptoms. The patient's history is obtained by speaking to the patient's family, that is his and son at the bedside. The patient has no nausea, vomiting, and chills, low grade fever, and shortness of breath, chest pain or palpitations. PAST MEDICAL HISTORY 1. History of chronic kidney disease, stage 2/3. 2. Diastolic congestive heart failure. 3. Chronic obstructive pulmonary disease. 4. Obstructive sleep apnea. 5. Hypertension. 6. Diabetes, type 2. 7. Gout. 8. Hyperlipidemia. 9. Gastroesophageal reflux disease. 10. Peripheral neuropathy. 11. Pulmonary hypertension. SURGICAL HISTORY Tonsillectomy as a child. SOCIAL HISTORY The patient lives with his and smokes half a pack of cigarettes per day, and drinks alcohol, a pint of whiskey every day the last time was earlier this morning and denies any illicit drug abuse. FAMILY HISTORY Reviewed. ALLERGIES Unit #: [id number] #: [id number] Patient: ANDREIA TEE No known drug allergies. HOME MEDICATIONS He is on: 1. Aspirin 2. Combivent 3. Lasix 4. Neurontin 5. Glipizide 6. Toprol 7. Pravastatin 8. Sertraline 9. Losartan 10. Antacid 11. Hydrocodone 12. Bactrim REVIEW OF SYSTEMS Unable to obtain as the patient is lethargic and unable to provide any history. PHYSICAL EXAMINATION GENERAL: The patient is lying on the bed, not in acute distress. VITALS: Temperature 99.4, pulse rate 88, respiratory 20, and blood pressure 133/60, saturation is 78% at room air. HEENT: Head: Atraumatic and normocephalic. Pupils equal, round, reactive to light and accommodation. Dry mucous membranes. LUNGS: Decreased air entry at the bases. HEART: Regular rate and rhythm. ABDOMEN: Soft, positive bowel sounds. EXTREMITIES: No cyanosis, no clubbing. Left foot status post boot for the fibular fracture two weeks ago. NEURO: The patient is lethargic and minimally responsive to the tactile stimuli but no response to the verbal commands. DIAGNOSTIC STUDIES LABORATORY: pH 7.41, pCO2 40, pO2 58.5, bicarb 26, oxygen saturation 90.7, glucose 95, BUN 48, creatinine 3.1, sodium 141, potassium 2.8, chloride 103, bicarb 27, calcium 7.9, magnesium 1.9, total protein 6.3, total bili 1.4, AST 50, ALT 24, alkaline phosphatase 113, BNP 289, ammonia is 40, INR is 1.2. White blood count 2.5, hemoglobin 7.9, hematocrit 23.8, platelets 51, neutrophils 92.8. Alcohol level is 122. Urine tox is positive for opiates. Urinalysis shows 2+ leukocyte esterase, positive nitrites, 3+ blood, and innumerable urine RBCs and 25-50 urine WBCs, and 4+ urine bacteria. ASSESSMENT/PLAN 1. Altered mental status. 2. Alcohol intoxication. 3. Delirium tremens. 4. Chronic kidney disease. 5. Hypokalemia. 6. Urinary tract infection. Plan to admit the patient to the intensive care unit and critical care with Dr. Haney as the patient is well known to him for the chronic obstructive pulmonary disease, on home oxygen, and continue the CIWA protocol, and will consult Dr. Bello and continue the IV antibiotics, Unit #: [id number] #: [id number] Patient: ANDREIA TEEhin 1 gram daily, replace the octreotide, and transfuse one pint of antiplatelet blood cells, and the patient is a full code at this time, and further recommendations will follow as more labs available. Dictated by Tay Simmons TD: 08/10/2016 09:47 JOB #: [id number] HISTORY AND PHYSICAL X X HISTORY AND PHYSICAL
--- NOTE | ~2016-08-09 | CR7 ---
[facility] A Service of [facility] & [facility] RADIOLOGY TEXT RESULTS PATIENT: ANDREIA TEE LOCATION: [facility] 338-01 : 43 UNIT #: [id number] AGE: [address]: Connie Molina MD SEX: M ORDER DR: [id number] [facility] [address] [facility]. [place], [place] [address] [id number] I MR#: [id number] Acc #: [id number] NAME: ANDREIA TEE : 1945 SEX: M STUDY DATE/TIME: 08/24/2016 14:13 [facility] STUDY DESCRIPTION: CR Abdomen Single AP View Attending Physician: Connie Molina M.D. Ordering Physician: Connie Molina M.D. Primary Care Physician: Denia Bennett M.D. MEDICAL IMAGING REPORT This report is preliminary unless electronic signature is present EXAM Frontal abdomen, 08/24/2016 INDICATION Alcohol on board, respiratory failure. Dobbhoff tube placement. TECHNIQUE frontal abdomen was performed compared with 08/24/2016 1027 hours. FINDINGS There is a Dobbhoff-type feeding tube present and the tip is at the expected level of the proximal to midbody stomach. Opacities in the left lung base not significantly changed. IMPRESSION The tip of the Dobbhoff tube is at the expected level of the proximal to midbody stomach. Dictated by... Bruce Lisa M.D. THIS IS AN ELECTRONICALLY VERIFIED REPORT Bruce Lisa M.D. at 08/25/2016 7:39 AM Iman TD: 08/24/2016 21:59 JOB #: [id number] MEDICAL IMAGING REPORT COPY
--- NOTE | ~2016-08-09 | CR72 ---
[facility] A Service of [facility] RADIOLOGY TEXT RESULTS PATIENT: ANDREIA TEE LOCATION: [address]24 : 43 UNIT #: [id number] AGE: [address]: Raymundo Rich MD SEX: M ORDER DR: [id number] [place] [id number] [facility]. [place], [place] [address] [id number] I MR#: [id number] Acc #: [id number] NAME: ANDREIA TEE : 1945 SEX: M STUDY DATE/TIME: 08/15/2016 5:05 UNIT: [facility] ROOM: [facility] STUDY DESCRIPTION: CR Chest Single View Portable Attending Physician: Connie Molina M.D. Ordering Physician: Power Pittman M.D. Primary Care Physician: Denia Bennett M.D. MEDICAL IMAGING REPORT This report is preliminary unless electronic signature is present EXAM Portable AP view of the chest. COMPARISON August 14, 2016 and August 13, 2016 INDICATION 71-year-old male with respiratory failure requiring ventilatory support for 6 days. FINDINGS AND IMPRESSION Endotracheal tube tip terminates approximately 7.1 cm above the david. This is slightly high-riding but has been advanced since last night. Feeding tube not traced below the body of the stomach where it passes off the bottom aspect of the image. Right upper extremity PICC terminates in the SVC, grossly stable. Calcification of the aortic arch. No pneumothorax. Lung volumes are low and there are stable left basilar opacities representing atelectasis or pneumonia. There may be a stable small left pleural effusion. Cardiomediastinal silhouette is normal. Dictated by... Ismael Chris M.D. THIS IS AN ELECTRONICALLY VERIFIED REPORT Ismael Chris M.D. at 08/19/2016 1:00 PM MOSES/nilesh TD: 08/15/2016 09:40 JOB #: [id number] MEDICAL IMAGING REPORT [facility] A Service of [facility] RADIOLOGY TEXT RESULTS PATIENT: ANDREIA ETE LOCATION: [facility]-09 : 43 UNIT #: [id number] AGE: [address]: Raymundo Rich MD SEX: M ORDER DR: COPY
--- NOTE | ~2016-08-09 | CR72 ---
[facility] A Service of [facility] & [facility] RADIOLOGY TEXT RESULTS PATIENT: ANDREIA TEE LOCATION: [address] : 43 UNIT #: [id number] AGE: [address]: Connie Molina MD SEX: M ORDER DR: [id number] [facility] [address] [facility]. [place], [place] [address] [id number] I MR#: [id number] Acc #: [id number] NAME: ANDREIA TEE : 1945 SEX: M STUDY DATE/TIME: 08/12/2016 6:07 UNIT: [facility] ROOM: [facility] STUDY DESCRIPTION: CR Chest Single View Portable Attending Physician: Lulu Zazueta M.D. Ordering Physician: Lulu Zazueta M.D. Primary Care Physician: Denia Bennett M.D. MEDICAL IMAGING REPORT This report is preliminary unless electronic signature is present EXAM Portable chest 08/12/2016 INDICATION Respiratory failure and confusion. FINDINGS AP portable chest is compared with 08/11/2016. Cardiomegaly is stable. There is some mild atelectasis or infiltrate in both infrahilar regions. Lungs otherwise are clear and there is no pneumothorax. Tip of the right arm PICC is difficult to see but it may be near the right atrial level. Dictated by... Devon Brown Jr., M.D. THIS IS AN ELECTRONICALLY VERIFIED REPORT Devon Brown Jr., M.D. at 08/12/2016 3:50 PM CHEPE/kathryn TD: 08/12/2016 09:22 JOB #: [id number] MEDICAL IMAGING REPORT COPY
--- NOTE | ~2016-08-09 | CO ---
Unit #: [id number] #: [id number] Patient: ANDREIA TEE [id number] [address] [place], [place] [address] [id number] I MR#: [id number] NAME: ANDREIA TEE ROOM: [facility] Age: 71 Sex: M Admission Date: 08/09/2016 : 1945 Attending Physician: Lulu Zazueta M.D. Primary Care Physician: Denia Bennett M.D. CONSULTATION REPORT The patient of Dr. Stevens. REASON FOR CONSULTATION Increased creatinine. HISTORY OF PRESENT ILLNESS Mr. Tee is a 71-year-old male, who was brought to the hospital by family because of confusion and altered mentation. He is a daily drinker, but has continued to drink daily up to the time of admission. He has had some tremors, but no witnessed seizures. He suffered an ankle fracture (left) couple of weeks ago. Thus has been treated with a brace. He went to the doctor a few days before this admission for attention to the ankle fracture and was diagnosed with urinary tract infection. He was prescribed Bactrim, but had not started that yet as of this admission. In the emergency department, he was noted to have evidence of urinary tract infection with pyuria and bacteriuria and was started on antibiotic (currently IV Rocephin). He was also noted to have a creatinine of 3.3 and Renal evaluation is requested. He has kidney disease of chronic quality and previously moderate severity prior to an episode of acute renal failure in 04/2016. Creatinine reached 5.7 during that hospitalization and recovered to 2.9 by discharge. No interval creatinines are available since that time, so progression to stage 4 CKD as possible. There also may be an acute component related to the acute infection. Additionally, he is on angiotensin-receptor umberto, so may have a reversible degree of dysfunction related to impaired renal compensation. Primary medical records suggest he has on 2 statins, so need to exclude rhabdomyolysis. He is confused, withdrawn, and unable to provide any additional history. is not aware of outlet symptoms. She is not aware of what creatinines may have been during the interval between the last episode of acute kidney injury and incomplete recovery. Nonsteroidal use is denied. PAST MEDICAL HISTORY Notable for hypertension, diabetes, alcoholism, coronary artery disease, COPD, and obstructive sleep apnea. He also had chart history of gastroesophageal reflux disease. SYSTEM REVIEW Not obtainable from the patient. Discussion with suggests that there was no awareness of urinary symptoms prior to admission either and the diagnosis of urinary tract infection was surprised. Red urine is not noted. She has not noted any change in urine volume. Unit #: [id number] #: [id number] Patient: ANDREIA TEE FAMILY HISTORY Negative for end-stage renal disease. SOCIAL HISTORY Positive for alcohol use and prior tobacco use. PHYSICAL EXAMINATION GENERAL: Reveals an obtunded male. VITAL SIGNS: Blood pressure 127/55, heart rate 65, respirations 16, temperature 97.4. HEENT: Conjunctivae are pale. There is no bloody nasal discharge. Oral mucous membranes are mildly dry. NECK: Thick. Jugular venous pressure is difficult to evaluate. Thyromegaly is not noted. SKIN: Warm and dry with reasonable turgor. LUNGS: Clear with diminished air movement. HEART: Reveals no rub. No S3. ABDOMEN: Obese, soft, nontender. Bowel sounds are present. : Includes no elicitable CVA tenderness with impaired sensorium. Bella catheter is in place. VASCULAR: Includes no flank bruits. EXTREMITIES: Includes some 1+ pitting pretibial edema and ecchymosis over the left lower leg (post fracture). DIAGNOSTIC STUDIES LABORATORY RESULTS: Includes a white count of 6100, hemoglobin 8.5, platelet count 55,000. BUN 50, creatinine 3.3, potassium 4.1, CO2 27, and calcium 7.6, albumin 2.5. Urinalysis shows 1+ protein, 3+ blood, sediment with 25 to 50 white cells, innumerable red cells, and 4+ bacteriuria. ASSESSMENT 1. Chronic kidney disease. Creatinine of 3.3 not far from the prior value of 2.9 in 04/2016, unclear whether he had any additional recovery at that time. He appears to have stage 4 chronic kidney disease in the setting of hypertension and diabetes and status post prior episode of severe acute kidney injury. Whether or not, there is a component of acute kidney injury related either to volume obstruction, rhabdomyolysis, impaired renal compensation on losartan, or infection is to be determined. 2. Urinary tract infection. Had been prescribed Bactrim as an outpatient, but has not started it yet. 3. Hypertension. Hold losartan for now. 4. Diabetes mellitus. 5. Ethanol. He is a daily drinker. Continuing up until day of admission. 6. Coronary artery disease. 7. Chronic obstructive pulmonary disease. 8. Obstructive sleep apnea. PLAN IV fluids have been adjusted and include dextrose, thiamine, folate, and multivitamin. We will check renal function panel and CBC in the morning. We will request urine for sodium and creatinine now. We will check CPK to exclude rhabdomyolysis on possible dual statin therapy (off now). We will check kidney ultrasound. Re-evaluate chemistries and labs in a.m. Thank you for allowing me to see Mr. Tee. Dictated by... Unit #: [id number] #: [id number] Patient: RANDALANDREIA Beltran M.D. REL/modl TD: 08/11/2016 06:36 JOB #: [id number] CONSULTATION REPORT X Devon Beltran MD X CONSULTATION REPORT
--- NOTE | ~2016-08-09 | XA166 ---
[facility] A Service of [facility] RADIOLOGY TEXT RESULTS PATIENT: ANDREIA TEE LOCATION: [address] : 43 UNIT #: [id number] AGE: [address]: Connie Molina MD SEX: M ORDER DR: [id number] [facility] [address] [facility]. [place], [place] [address] [id number] MR#: [id number] #: [id number] NAME: ANDREIA TEE : 1945 SEX: M STUDY DATE/TIME: 08/11/2016 14:11 UNIT: [facility] ROOM: [facility] STUDY DESCRIPTION: XA PICC Line Placement WO Port Attending Physician: Connie Molina M.D. Ordering Physician: Jorge Young M.D. Primary Care Physician: Denia Bennett M.D. MEDICAL IMAGING REPORT This report is preliminary unless electronic signature is present EXAM Right-sided PICC line placement INDICATION Need for IV access in a patient with respiratory failure and confusion. TECHNIQUE The procedure was explained to the patient's truck sales representative including risks, benefits, potential complications and potential for alternative forms of treatment. Informed consent was obtained. Prior to initiating the procedure, a formal time-out procedure was performed. Using all elements of maximal sterile barrier technique including hand hygiene, caps, sterile gowns, gloves and masks, the right arm was prepped with 2% chlorhexidine for cutaneous antisepsis and covered with a large sterile sheet. Real-time sterile ultrasound guidance was used to localize a right upper extremity vein which was found to be patent and compressible. A hard copy ultrasound image was obtained. After local anesthesia with 1% Xylocaine, the vein was punctured using real-time sterile ultrasound guidance, and an 0.018 guidewire was advanced into the superior vena cava under fluoroscopic guidance. A peel-away sheath was placed over the wire. The catheter was measured, trimmed and was advanced into the superior vena cava. Following placement of the catheter, it flushed and aspirated easily. Total fluoroscopy time was 0.1 minutes. AK was 3 mGy. IMPRESSION Successful placement of a right-sided PICC line which terminates within the superior vena cava. This catheter is ready for immediate use. Dictated by... Ashlie Hernández M.D. [facility] A Service of [facility] RADIOLOGY TEXT RESULTS PATIENT: ANDREIA TEE LOCATION: [address] : 43 UNIT #: [id number] AGE: [address]: Connie Molina MD SEX: M ORDER DR: THIS IS AN ELECTRONICALLY VERIFIED REPORT Ashlie Hernández M.D. at 08/12/2016 5:57 PM BRIAN/roni TD: 08/12/2016 09:54 JOB #: [id number] MEDICAL IMAGING REPORT COPY
--- NOTE | ~2016-08-09 | CO ---
Unit #: [id number] #: [id number] Patient: ANDREIA TEE [id number] [facility]. [place], [place] [address] [id number] I MR#: [id number] NAME: ANDREIA TEE ROOM: CIC2 Age: 71 Sex: M Admission Date: 08/09/2016 : 1945 Attending Physician: Lulu Zazueta M.D. Primary Care Physician: Denia Bennett M.D. Consultation Date: 08/10/2016 CONSULTATION REPORT REASON FOR CONSULTATION ICU, COPD, respiratory failure. HISTORY OF PRESENT ILLNESS A 71-year-old gentleman, who has COPD and sleep apnea, noncompliant with treatment, who has been previously seen by Dr. Haney. He apparently fell and broke his leg 2 weeks ago, but refused to come to the hospital, and he has been walking on that with the aid of a walker. He had worsening symptoms, chilling sensation. He had complaints consistent with urinary tract infection, saw Dr. Bennett, and Bactrim was prescribed but never picked up. He then had worsening chills and finally consented to coming to the hospital. He had a very high fever. Chest x-ray was unremarkable. Urine was consistent with UTI. There was concern of alcohol withdrawal, and he was treated with Ativan. Currently, he is in the ICU. He will open his eyes to voice but cannot add to the history. PAST MEDICAL HISTORY Remarkable for COPD with basically ongoing active use of either tobacco or electronic cigarettes; history of obstructive sleep apnea, noncompliant with CPAP; history of chronic respiratory failure, noncompliant with oxygen; history of chronic kidney disease; diastolic heart failure; diabetes; hypertension; gout; hyperlipidemia; gastroesophageal reflux; pulmonary hypertension, details unclear. ALLERGIES No known medical allergies. MEDICATIONS According to the med rec sheet, aspirin, Combivent, Lasix, Neurontin, glipizide, Toprol, pravastatin, sertraline, losartan, antacid, hydrocodone, and Bactrim which he has not picked up yet. SOCIAL HISTORY Quit smoking cigarettes 2 years ago. He smokes electronic cigarettes, although the ER face sheet says that he still smokes a quarter of a pack cigarettes a day. He drinks a 5th of whiskey a day, possibly more. FAMILY HISTORY Unobtainable. REVIEW OF SYSTEMS Unobtainable. Unit #: [id number] #: [id number] Patient: ANDREIA TEE PHYSICAL EXAMINATION VITAL SIGNS: Reveal a patient, who is afebrile currently at a T-max of 104.2, pulse 65, respiratory rate is 16, blood pressure is 127/55. He is 5 feet 11 inches, 262 pounds, BMI 36. HEENT: Pupils equal, round, and reactive to light. Sclerae anicteric. Head atraumatic. NECK: Supple. No supraclavicular or cervical adenopathy appreciated. Mucous membranes moist. He has a Mallampati class IV oral pharynx. CHEST: Equal breath sounds. No definite wheeze. A few scattered rhonchi. Posterior auscultation not performed. CARDIAC: Reveals regular rate and rhythm. Distant heart tones. No definite pathologic murmur, rub, or gallop. ABDOMEN: Soft and nontender. No hepatomegaly or rebound. EXTREMITIES: Reveal no clubbing or cyanosis. He has bilateral edema. SKIN: Contusions, mild erythema. NEUROLOGICAL: He will open his eyes to voice. The family states that he is more alert today than he was yesterday, could not cooperate with a full neurologic exam. DIAGNOSTIC STUDIES IMAGING STUDIES: Chest x-ray, likely unremarkable, there is a small area at right lower lobe which could be an occult nodule versus overlying shadows. LABORATORY RESULTS: Arterial blood gas; pH is 7.41, pCO2 of 40, pO2 of 68 on 2 L. BUN is 50. Creatinine is 3.3. BNP 289, ammonia 40, alcohol level 122. Lactate was drawn, was elevated at 3.7, then 3.0, now it is 1.4. INR normal. White blood cell count was 2.5, now 6.1; hemoglobin is 8.5; and platelet count is 55. Tox screen, opiates, urinalysis consistent with urinary tract infection. Blood cultures pending. Urine culture pending. CARDIOVASCULAR STUDIES: Rhythm strips are sinus. EKG nonspecific ST-T wave changes. IMPRESSION 1. Multiple problems exist. It appears he has a urinary tract infection with fever and obtundation, possible underlying sepsis. 2. Alcohol abuse, massive. 3. Leg fracture 2 weeks ago. 4. Chronic obstructive pulmonary disease without active bronchospasm. 5. Chronic respiratory failure, noncompliant. 6. Obstructive sleep apnea, noncompliant. 7. 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 8. Hypoglycemia, likely secondary to alcohol poisoning of his bone marrow. I guess he could have some residual medication effect. 9. Acute kidney injury/chronic kidney disease. 10. Diabetes. 11. Diastolic heart failure. 12. Multiple medical problems as above. PLAN Prognosis is guarded. I have discussed with the family the severity of his illness and multiple organs involved due to his habits. Support antibiotics and ICU observation. Thank you very much for allowing me to participate in the care of Mr. Tee. Unit #: [id number] #: [id number] Patient: ANDREIA TEE Dictated by... Tay Stoddard/yue TD: 08/11/2016 07:43 JOB #: [id number] CC: Aliza Reyes M.D. CONSULTATION REPORT X Laith Rosas MD X CONSULTATION REPORT
--- NOTE | ~2016-08-09 | CO ---
Unit #: [id number] #: [id number] Patient: ANDREIA TEE [id number] [address] [place], [place] [address] [id number] I MR#: [id number] NAME: ANDREIA TEE ROOM: CIC2 Age: 71 Sex: M Admission Date: 08/09/2016 : 1945 Attending Physician: Connie Molina M.D. Primary Care Physician: Denia Bennett M.D. CONSULTATION REPORT REASON FOR EVALUATION Pancytopenia. Please evaluate. HISTORY OF PRESENT ILLNESS The patient is a 71-year-old gentleman I saw a few years ago. At that time he had all the signs and symptoms of chronic alcoholism with elevated bilirubin, inverted AST and ALT and thrombocytopenia plus neutropenia and milder anemia. At that time I had a long discussion with him regarding stopping and his was present. Then he was lost to followup for multiple years and now presents with respiratory failure and pancytopenia. 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 He is currently on multiple medications including pravastatin, aspirin, Combivent, Lasix, Neurontin, glipizide, Toprol, losartan, Bactrim, hydrocodone, antacids, multivitamins, but he is currently on a vent and sedated and is unable to answer any questions. The is in the room. SOCIAL HISTORY . Lives with . He has been smoking for over three decades. Pint of whiskey kind of drinking for decades. FAMILY HISTORY Negative for pancytopenia. ALLERGIES No known drug allergies. REVIEW OF SYSTEMS Not obtainable. PHYSICAL EXAMINATION GENERAL: The patient is on the vent and sedated. Central obesity. LUNGS: Crackles. No rales. HEART: Distant S1 and S2. ABDOMEN: Bowel sounds are present. There may be early ascites. NEUROLOGIC: BOTANICAL TECHNICAL OFFICER is not possible to evaluate. RECTAL: Not done. DIAGNOSTIC STUDIES LABORATORY: Chemistry, glucose 167, BUN 33, creatinine 1.9, sodium 139, potassium 3.9, chloride 108, CO2 25, calcium 7.3, hemoglobin 7.6, hematocrit 22.5, MCV 102.8, white blood cell count 3200, platelets 43,000. Unit #: [id number] #: [id number] Patient: ANDREIA TEE I am going back looking at his labs from 2014. He did have thrombocytopenia and in 2012 his platelet count was 81,000. In 2012 his hemoglobin was normal. In 2016 it was up to 9 and 10 g, currently 7.7 g. White count has been low all along, 2800 in 2014 and again 2500 currently. ASSESSMENT This 71-year-old gentleman with a long history of alcoholism with its effect on the bone marrow causing cytopenia may also have cirrhosis with hypersplenism and possibility of ascites. PLAN All of this was discussed with the . I told her that we will check baseline labs, including iron, TIBC, ferritin, B12 and folate, replenish as needed and upon extubation we will need a CT of the abdomen and pelvis with IV and p.o. contrast to see the status of his liver and spleen. In the meantime, if his hemoglobin drops significantly or drops to 7 or below we will transfuse packed red blood cells. Would not transfuse platelets unless there is evidence of bleeding or that count drops below 10,000. Dictated by... Carrillo Rucker M.D. SPS/gz TD: 08/14/2016 14:58 JOB #: [id number] CONSULTATION REPORT X Carrillo uRcker MD X CONSULTATION REPORT
--- NOTE | ~2016-08-09 | CT71 ---
[facility] A Service of [facility] RADIOLOGY TEXT RESULTS PATIENT: ANDREIA TEE LOCATION: CICCU2 CICCU07-24 : 43 UNIT #: [id number] AGE: [address]: DARNELL MACARIO MD SEX: M ORDER DR: [id number] [address] [address] [id number] E MR#: [id number] Acc #: [id number] NAME: ANDREIA TEE : 1945 SEX: M STUDY DATE/TIME: 08/09/2016 16:27 UNIT: RAJEEV ROOM: STUDY DESCRIPTION: CT Head Wo Contrast Attending Physician: Raman Kumar M.D. Ordering Physician: Raman Kumar M.D. Primary Care Physician: Denia Bennett M.D. MEDICAL IMAGING REPORT This report is preliminary unless electronic signature is present EXAM CT head without contrast. DATE OF EXAM 08/09/2016 INDICATIONS Fever. Fall on 08/03/2016. Superior head pain after the fall. PROCEDURE Noncontrast CT of the head. COMPARISON 02/20/2014 TECHNIQUE NOTE: This CT exam was performed with one or more of the following radiation dose reduction techniques: automatic exposure control, adjustment of mA and/or kV according to patient size, and iterative reconstruction. FINDINGS Generalized volume loss. No acute hemorrhage. No midline shift, extraaxial collection or hydrocephalus. No calvarial fracture. Paranasal sinuses and mastoid air cells clear. IMPRESSION No acute intracranial findings. Dictated by... Will Chan M.D. [facility] A Service of [facility] RADIOLOGY TEXT RESULTS PATIENT: ANDREIA TEE LOCATION: CICCU2 CICCU2-09 : 43 UNIT #: [id number] AGE: [address]: DARNELL MACARIO MD SEX: M ORDER DR: THIS IS AN ELECTRONICALLY VERIFIED REPORT Will Chan M.D. at 08/11/2016 6:59 AM Lucas TD: 08/09/2016 19:13 JOB #: [id number] MEDICAL IMAGING REPORT COPY
--- NOTE | ~2016-08-09 | CO ---
Unit #: [id number] #: [id number] Patient: ANDREIA TEE [id number] [facility] [address] [facility]. [place], [place] [address] [id number] I MR#: [id number] NAME: ANDREIA TEE ROOM: 338 Age: 71 Sex: M Admission Date: 08/09/2016 : 1945 Attending Physician: Connie Molina M.D. Primary Care Physician: Denia Bennett M.D. Consultation Date: 08/25/2016 CONSULTATION REPORT REASON FOR CONSULTATION Altered mental status. HISTORY OF PRESENT ILLNESS Mr. Andreia Tee is a 71-year-old white male, seen in room 338 on 08/25/2016 at [facility]. The patient's was at the bedside. The patient was admitted due to alcohol withdrawal. The patient has multiple health conditions and continues to have confusion. The patient was unable to give any reliable information, needing restraints. The patient was very agitated and started on Haldol recently, tolerating medication fairly well and also given recently Haldol 2 mg through G-tube. The patient was unable to provide any coherent history, agitated, and aggressive. PAST PSYCHIATRIC HISTORY Remarkable for history of alcohol abuse. 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 MEDICATIONS The patient is on aspirin, Combivent, Lasix, Neurontin, glipizide, Toprol, pravastatin, sertraline, losartan, antacid, hydrocodone, Bactrim. Please refer to H and P for detail. FAMILY HISTORY AND SOCIAL HISTORY The patient has a good support system. No history of any abuse. History of substance abuse as mentioned above, mainly alcohol. REVIEW OF SYSTEMS Complete review of systems is remarkable for agitation and confusion. MENTAL STATUS EXAMINATION General appearance, the patient dressed in hospital attire, moderately obese. Attention span and concentration, poor. Speech, incoherent. Orientation unable to assess. Mood and affect, labile. Thought process and thought content, disorganized. Recent and remote memory, unable to assess. Language, unable to assess. Fund of knowledge, poor. Insight and judgment, impaired. DIAGNOSES Unit #: [id number] #: [id number] Patient: ANDREIA TEE Psychiatric: Delirium, F05; alcohol use disorder, severe, F10.20; mood disorder, not otherwise specified. Secondary diagnosis: Deferred. Medical diagnosis: Please refer to H and P. Stressors: Psychosocial stressors. ASSESSMENT/PLAN 1. Supportive psychotherapy and psychoeducation provided to the patient's family, the patient is unable to comprehend much. 2. Advised to continue with current treatment. 3. Advised Haldol 5 mg t.i.d. Advised p.o. route, preferably IM route. If needed consider adding Ativan also to control severe agitation and delirium. Please feel free to call if any questions, telephone [phone]. Dictated by... Tay Mcdermott/yue TD: 08/27/2016 01:38 JOB #: [id number] CONSULTATION REPORT X Brett Mason MD X CONSULTATION REPORT
--- NOTE | ~2016-08-09 | CT57 ---
[facility] A Service of [facility] RADIOLOGY TEXT RESULTS PATIENT: ANDREIA TEE [facility]ATION: [facility] UNIT #: [id number] AGE: [address]: Raymundo Rich MD SEX: M ORDER DR: [id number] [facility]. [place], [place] [address] [id number] I MR#: [id number] Acc #: [id number] NAME: ANDREIA TEE : 1945 SEX: M STUDY DATE/TIME: 08/22/2016 10:50 UNIT: [facility] ROOM: [facility] STUDY DESCRIPTION: CT Chest Wo Cont Attending Physician: Raymundo Rich M.D. Ordering Physician: Osvaldo Haney M.D. Primary Care Physician: Denia Bennett M.D. MEDICAL IMAGING REPORT This report is preliminary unless electronic signature is present EXAM CT of the chest without contrast. HISTORY 71-year-old male with fever and respiratory failure, pneumonia. TECHNIQUE CT chest performed without contrast. Coronal and sagittal reformatted images were obtained. This CT exam was performed with one or more of the following radiation dose reduction techniques: automatic exposure control, adjustment of mA and/or kV according to patient size, and iterative reconstruction. COMPARISON STUDIES CT abdomen and pelvis, 08/19/2016. FINDINGS There is increasing atelectasis in the left lower lobe. Superimposed pneumonia cannot be excluded. There is trace left pleural fluid. Atelectasis in the dependent portion of the right lung. Cardiomegaly. Calcified mediastinal lymph nodes. Limited imaging of the upper abdomen demonstrates an NG tube. Bone windows are unremarkable. IMPRESSION 1. There is increasing atelectasis in the left lower lobe. A superimposed pneumonia cannot be excluded. 2. There is a trace left pleural fluid. 3. Cardiomegaly. Dictated by... [facility] A Service of [facility] & [facility] RADIOLOGY TEXT RESULTS PATIENT: ANDREIA TEE [facility] UNIT #: [id number] AGE: [address]: Raymundo Rich MD SEX: M ORDER DR: Rajat Harris M.D. THIS IS AN ELECTRONICALLY VERIFIED REPORT Rajat Harris M.D. at 08/22/2016 5:07 PM Colleen TD: 08/22/2016 13:01 JOB #: [id number] MEDICAL IMAGING REPORT COPY
--- NOTE | ~2016-08-09 | CR72 ---
[facility] A Service of [facility] RADIOLOGY TEXT RESULTS PATIENT: ANDREIA TEE LOCATION: [facility] 338-01 : 43 UNIT #: [id number] AGE: [address]: Connie Molina MD SEX: M ORDER DR: [id number] [facility] [address] [facility]. [place], [place] [address] [id number] I MR#: [id number] Acc #: [id number] NAME: ANDREIA TEE : 1945 SEX: M STUDY DATE/TIME: 08/23/2016 4:57 UNIT: [facility] ROOM: [facility] STUDY DESCRIPTION: CR Chest Single View Portable Attending Physician: Connie Molina M.D. Ordering Physician: Osvaldo Haney M.D. Primary Care Physician: Denia Bennett M.D. MEDICAL IMAGING REPORT This report is preliminary unless electronic signature is present EXAM AP portable chest. DATE OF EXAM 08/23/2016 at 04:57. HISTORY 71-year-old male with respiratory failure, acute mental status changes, extubated. Symptoms began 08/09/2016. Additional history of kidney disease and congestive heart failure. Alcohol abuse. COMPARISON AP portable chest and CT chest, 08/22/2016. FINDINGS Persistent dense left lower lobe consolidation or atelectasis. Mild right basilar atelectasis appears new or increased compared to yesterday's study. No visible pneumothorax. Stable cardiac enlargement. Dobbhoff tube and right arm-approach PICC appears stable. Dictated by... Valeri Manjarrez M.D. THIS IS AN ELECTRONICALLY VERIFIED REPORT Valeri Manjarrez M.D. at 08/24/2016 9:59 PM RHETT/niles TD: 08/23/2016 23:44 JOB #: [id number] MEDICAL IMAGING REPORT [facility] A Service of [facility] RADIOLOGY TEXT RESULTS PATIENT: NADREIA TEE LOCATION: [facility] 338-01 : 43 UNIT #: [id number] AGE: [address]: Connie Molina MD SEX: M ORDER DR: COPY
--- NOTE | ~2016-08-09 | CR72 ---
[facility] A Service of [facility] RADIOLOGY TEXT RESULTS PATIENT: ANDREIA TEE LOCATION: [address] : 43 UNIT #: [id number] AGE: [address]: Raymundo Rich MD SEX: M ORDER DR: [id number] [facility] [address] [facility]. [place], [place] [address] [id number] I MR#: [id number] Acc #: [id number] NAME: ANDREIA TEE : 1945 SEX: M STUDY DATE/TIME: 08/22/2016 04:50 UNIT: [facility] ROOM: [facility] STUDY DESCRIPTION: CR Chest Single View Portable Attending Physician: Raymundo Rich M.D. Ordering Physician: Osvaldo Haney M.D. Primary Care Physician: Denia Bennett M.D. MEDICAL IMAGING REPORT This report is preliminary unless electronic signature is present EXAM Portable chest 08/22/2016 at 0450 INDICATION Patient recently extubated. History of respiratory failure. FINDINGS AP portable chest is compared with 08/21/2016. There is increased consolidation at the left base which may reflect left lower lobe atelectasis. Small volume of left pleural fluid is present. Right lung is clear. No pneumothorax. Dictated by... Devon Brown Jr., M.D. THIS IS AN ELECTRONICALLY VERIFIED REPORT Devon Brown Jr., M.D. at 08/22/2016 12:41 PM CHEPE/kathryn TD: 08/22/2016 10:02 JOB #: [id number] MEDICAL IMAGING REPORT COPY
--- NOTE | ~2016-08-09 | CR72 ---
[facility] A Service of [facility] & [facility] RADIOLOGY TEXT RESULTS PATIENT: ANDREIA TEE LOCATION: [address] : 43 UNIT #: [id number] AGE: [address]: Connie Molina MD SEX: M ORDER DR: [id number] [facility] [address] [facility]. [place], [place] [address] [id number] I MR#: [id number] Acc #: [id number] NAME: ANDREIA TEE : 1945 SEX: M STUDY DATE/TIME: 08/17/2016 04:39 UNIT: [facility] ROOM: [facility] STUDY DESCRIPTION: CR Chest Single View Portable Attending Physician: Connie Molina M.D. Ordering Physician: Fátima Bello M.D. Primary Care Physician: Denia Bennett M.D. MEDICAL IMAGING REPORT This report is preliminary unless electronic signature is present EXAM Portable chest, 08/17 at 04:39 INDICATION Respiratory failure. Ventilator patient. History of hypertension, smoking. FINDINGS AP portable chest is compared with 08/16/2016. ET tube mid trachea. Right arm PICC is probably at the lower SVC level. Heart size stable. Patient is rotated. There is continued atelectasis or infiltrate in the bases, left greater than right and there is a small left pleural effusion. No pneumothorax. Dictated by... Devon Brown Jr., M.D. THIS IS AN ELECTRONICALLY VERIFIED REPORT Devon Brown Jr., M.D. at 08/17/2016 9:33 PM CHEPE/elham TD: 08/17/2016 17:09 JOB #: [id number] MEDICAL IMAGING REPORT COPY
--- NOTE | ~2016-08-09 | TOC ---
Unit #: [id number] #: [id number] Patient: ANDREIA TEE [id number] [address] [address] [id number] MR#: [id number] NAME: ANDREIA TEE ROOM: [facility] Age: 71 Sex: M Admission Date: 08/09/2016 : 1945 Attending Physician: Raymundo Rich M.D. Primary Care Physician: Denia Bennett M.D. TRANSFER OF CARE SUMMARY ADDENDUM Addendum to discharge summary to discharge summary by Dr. Connie Molina on 08/17/2016. For the week following the events of the dictation above, the patient was successfully extubated and remained so. His mental status did worsen and it has been unclear whether this is due to hepatic encephalopathy, alcohol withdrawal or his ongoing infection. It is likely a combination of all of the above. The patient remains unable to carry on a meaningful conversation and is somewhat scattered. An ammonia level was checked and initially returned at 106. The patient was started on and continues to receive lactulose. His most recent ammonia was 40. The patient continues to receive Ativan intermittently for agitation, but this also has failed to fix his mental status changes. The patient continues on treatment for his aspiration pneumonia in the form of Rocephin and vancomycin. Dictated by... Tay Kim/catracho TD: 08/22/2016 13:54 JOB #: [id number] TRANSFER OF CARE SUMMARY X Raymudno Rich MD X TRANSFER OF CARE SUMMARY
[~2016-08-09 15:37] MED LIST: ALBUTEROL SULF8.5 G1 IH; ALDACTONE25 MG PO; ALLOPURINOL300 MG PO; ANTACID650 MG PO; APRESOLINE10 MG DOB; APRESOLINE10 MG PO; ASPIRIN81 MG PO; B COMPLEX1 CA1 PO; COMBIVENT U/D3 M2 INH; DESYREL50 MG PO; ENFOLAST TABLE1 EACH PO; FOLIC ACID1 MG PO; FUROSEMIDE40 MG PO; GABAPENTIN300 M2 PO; GABAPENTIN300 MG PO; GLIPIZIDE10 MG PO; GLUCOTROL PO; HYDRALAZINE HCL25 MG PO; HYDROCODON-ACE1 EAC7 PO; LASIX20 MG PO; LOPRESSOR PO; LOSARTAN POTASS50 MG PO; LOVENOX30 MG/0.3 INJ; LOW DOSE ASPIRI81 M1 PO; MOBIC15 MG DOB; NEURONTIN300 MG PO; NORVASC10 MG PO; OXYGEN; OXYGEN INH; PAIN RELIEVER325 M1 PO; PRAVACHOL10 MG PO; PRAVASTATIN SOD10 MG PO; PRINIVIL40 MG PO; SERTRALINE HCL50 M1 PO; SERTRALINE HCL50 MG PO; TRAMADOL HCL50 M2 PO; VITAMIN B-1100 M1 PO; VITAMIN B-121000 MCG PO; ZESTRIL40 MG PO; ZITHROMAX PO; ZYLOPRIM100 MG PO
[2016-08-09 15:48] LABS: ARTERIAL BLD GAS O2 SATURATION 90.7 % (90.0-100.0); ARTERIAL BLOOD GAS ALLEN TEST NORMAL; ARTERIAL BLOOD GAS ART SITE LEFT RADIAL; ARTERIAL BLOOD GAS CARBOXY HB 1.6 %sat (0.0-9.0); ARTERIAL BLOOD GAS MET HB 0.6 %sat (0.0-2.0); ARTERIAL BLOOD GAS PCO2 40.3 mmHg (35.0-45.0); ARTERIAL BLOOD GAS PO2 68.5 mmHg (80.0-100); ARTERIAL BLOOD GAS pH 7.417 (7.350-7.450); ARTERIAL DRAW? YES
[2016-08-09 15:49] LABS: ARTERIAL BLOOD GAS DELIVERY NASAL CANNULA
[2016-08-09 16:17] LABS: INR 1.2; PARTIAL THROMBOPLASTIN TIME 23.1 SECONDS (23.5-31.3); PROTHROMBIN TIME (PATIENT) 12.5 SECONDS (9.6-11.5)
[2016-08-09 16:18] LABS: BASOPHIL% 0.5 % (0-2.5); EOSINOPHIL% 1.1 % (0.0-7.0); HEMATOCRIT 23.8 % (38.0-50.0); HEMOGLOBIN 7.9 gm/dL (13.0-16.0); LYMPHOCYTE# 0.1 X10e3 (1.0-3.5); LYMPHOCYTE% 4.6 % (17.0-45.0); MEAN CORPUSCULAR HGB CONC 33.3 g/dL (30-36); MEAN PLATELET VOLUME 7.7 FL (6.5-11.5); NEUTROPHIL# 2.4 X10e3 (1.5-7.1); NEUTROPHIL% 92.8 % (40-75); RED BLOOD COUNT 2.27 X10e (3.90-5.60); RED CELL DISTRIBUTION WIDTH 15.7 % (11.0-15.5); WHITE BLOOD COUNT 2.5 X10e3 (4.0-10.5)
[2016-08-09 16:20] LABS: DIFF IND YES; PLATELET COUNT 51 X10e3 (140-420)
[2016-08-09 16:32] LABS: ALBUMIN SERUM 2.6 g/dL (3.5-5.0); BILIRUBIN, DIRECT 0.6 mg/dL (0.0-0.2); BILIRUBIN,INDIRECT 0.8 mg/dL (0.0-0.9); BILIRUBIN,TOTAL 1.4 mg/dL (0.2-2.0); BUN/CREATININE RATIO 15.48; CALCIUM SERUM 7.9 mg/dL (8.4-10.2); CREATININE SERUM 3.1 mg/dL (0.6-1.4); GLOM FILT RATE Estimated 21.1 mL/min (>60); PROTEIN TOTAL SERUM 6.3 g/dL (6.0-8.3)
[2016-08-09 16:33] LABS: POTASSIUM 2.8 mmol/L (3.5-5.1)
[2016-08-09 16:39] LABS: ANISOCYTOSIS MOD; PLATELET ESTIMATE DECREASED (NORMAL); POIKILOCYTOSIS MOD
[2016-08-09] MEDS ORDERED: COMBIVENT U/D3 M1 INH (17:26)
[2016-08-09] MEDS ORDERED: ASPIRIN81 MG PO (17:26)
[2016-08-09] MEDS ORDERED: LASIX20 MG PO (17:27)
[2016-08-09] MEDS ORDERED: GLIPIZIDE10 MG PO (17:27)
[2016-08-09] MEDS ORDERED: NEURONTIN300 MG PO (17:27)
[2016-08-09] MEDS ORDERED: PRAVASTATIN SOD10 MG PO (17:28)
[2016-08-09] MEDS ORDERED: SERTRALINE HCL50 MG PO (17:28)
[2016-08-09] MEDS ORDERED: TOPROL XL50 MG PO (17:28)
[2016-08-09] MEDS ORDERED: LOSARTAN POTASS50 MG PO (17:29)
[2016-08-09] MEDS ORDERED: ANTACID650 MG PO (17:29)
[2016-08-09] MEDS ORDERED: HYDROCODONE-A1 UDTA4 PO (17:31)
[2016-08-09] MEDS ORDERED: BACTRIM DS TABL1 TA1 PO (17:35)
[2016-08-09 17:43] LABS: URINE SOURCE CLEAN CATCH
[2016-08-09 17:52] LABS: URINE APPEARANCE CLOUDY; URINE BILIRUBIN NEG (NEG); URINE BLOOD 3+ (NEG); URINE COLOR DK YELLOW; URINE GLUCOSE NEG (NEG); URINE KETONE NEG (NEG); URINE LEUKOCYTE ESTERASE 2+ (NEG); URINE NITRATE POS (NEG); URINE PH 5.5 (5-8); URINE PROTEIN 1+ (NEG); URINE SPECIFIC GRAVITY 1.017 (1.003-1.035)
[2016-08-09 17:58] LABS: CULTURE INDICATED? YES; URBCS1 AUWI INNUM /[HPF] (0-2); URINE BACTERIA AUWI 4+ (NEGATIVE); URINE SQUAMOUS EPITHELIAL CELL NONE SEEN /[HPF]; UWBCS1 AUWI 25-50 (0-5)
[2016-08-09 18:28] LABS: AMPHETAMINE NEG (NEG); BARBITURATES NEG (NEG); BENZODIAZEPINES NEG (NEG); COCAINE NEG (NEG); MARIJUANA NEG (NEG); OPIATES POS (NEG); TRICYCLIC ANTIDEPRESSANTS NEG (NEG); U METHADONE NEG (NEG)
[2016-08-09 23:55] LABS: BASOPHIL% 0.3 % (0-2.5); EOSINOPHIL% 0.1 % (0.0-7.0); HEMATOCRIT 25.6 % (38.0-50.0); HEMOGLOBIN 8.8 gm/dL (13.0-16.0); LYMPHOCYTE# 0.1 X10e3 (1.0-3.5); MEAN CELL VOLUME 102.6 FL (83-96); MEAN CORPUSCULAR HEMOGLOBIN 35.1 PG (28-34); MEAN CORPUSCULAR HGB CONC 34.2 g/dL (30-36); MEAN PLATELET VOLUME 7.7 FL (6.5-11.5); MONOCYTE% 0.6 % (3.0-12.0); NEUTROPHIL# 3.5 X10e3 (1.5-7.1); RED CELL DISTRIBUTION WIDTH 18.2 % (11.0-15.5); WHITE BLOOD COUNT 3.7 X10e3 (4.0-10.5)
[2016-08-09 23:58] LABS: DIFF IND NO; PLATELET COUNT 32 X10e3 (140-420)
[2016-08-10 00:15] LABS: BUN/CREATININE RATIO 14.54; CREATININE SERUM 3.3 mg/dL (0.6-1.4); GLOM FILT RATE Estimated 19.6 mL/min (>60); POTASSIUM 3.7 mmol/L (3.5-5.1)
[2016-08-10 04:49] LABS: BASOPHIL% 0.3 % (0-2.5); EOSINOPHIL% 0.1 % (0.0-7.0); HEMOGLOBIN 8.5 gm/dL (13.0-16.0); LYMPHOCYTE# 0.2 X10e3 (1.0-3.5); MEAN CELL VOLUME 103.6 FL (83-96); MEAN CORPUSCULAR HEMOGLOBIN 35.1 PG (28-34); MEAN CORPUSCULAR HGB CONC 33.9 g/dL (30-36); MEAN PLATELET VOLUME 8.4 FL (6.5-11.5); MONOCYTE# 0.2 X10e3 (0-1.0); MONOCYTE% 3.9 % (3.0-12.0); NEUTROPHIL# 5.6 X10e3 (1.5-7.1); NEUTROPHIL% 91.7 % (40-75); RED BLOOD COUNT 2.41 X10e (3.90-5.60); RED CELL DISTRIBUTION WIDTH 18.5 % (11.0-15.5)
[2016-08-10 04:50] LABS: DIFF IND NO; PLATELET COUNT 55 X10e3 (140-420); WHITE BLOOD COUNT 6.1 X10e3 (4.0-10.5)
[2016-08-10 05:04] LABS: ALBUMIN SERUM 2.5 g/dL (3.5-5.0); BILIRUBIN,TOTAL 1.9 mg/dL (0.2-2.0); BUN/CREATININE RATIO 15.15; CALCIUM SERUM 7.6 mg/dL (8.4-10.2); CREATININE SERUM 3.3 mg/dL (0.6-1.4); GLOM FILT RATE Estimated 19.6 mL/min (>60); POTASSIUM 4.1 mmol/L (3.5-5.1); PROTEIN TOTAL SERUM 6.1 g/dL (6.0-8.3)
[2016-08-10 05:15] LABS: THYROID STIMULATING HORMONE 0.59 uIU/ml (0.34-5.60)
[2016-08-10 05:21] LABS: FREE THYROXIN (T4) 0.62 ng/dL (0.58-1.64)
[2016-08-10 15:51] LABS: HEMATOCRIT 23.1 % (38.0-50.0); HEMOGLOBIN 7.7 gm/dL (13.0-16.0)
[2016-08-11 05:29] LABS: BASOPHIL% 0.7 % (0-2.5); EOSINOPHIL# 0.2 X10e3 (0-0.7); EOSINOPHIL% 2.8 % (0.0-7.0); HEMATOCRIT 22.6 % (38.0-50.0); HEMOGLOBIN 7.7 gm/dL (13.0-16.0); LYMPHOCYTE# 0.5 X10e3 (1.0-3.5); LYMPHOCYTE% 9.9 % (17.0-45.0); MEAN CELL VOLUME 102.7 FL (83-96); MEAN CORPUSCULAR HGB CONC 34.1 g/dL (30-36); MONOCYTE# 0.3 X10e3 (0-1.0); MONOCYTE% 4.6 % (3.0-12.0); NEUTROPHIL# 4.5 X10e3 (1.5-7.1); RED CELL DISTRIBUTION WIDTH 18.1 % (11.0-15.5); WHITE BLOOD COUNT 5.5 X10e3 (4.0-10.5)
[2016-08-11 05:41] LABS: PLATELET COUNT 48 X10e3 (140-420)
[2016-08-11 05:42] LABS: DIFF IND NO
[2016-08-11 06:48] LABS: ALBUMIN SERUM 2.1 g/dL (3.5-5.0); BILIRUBIN,TOTAL 1.2 mg/dL (0.2-2.0); BUN/CREATININE RATIO 18.8; CALCIUM SERUM 7.1 mg/dL (8.4-10.2); CREATININE SERUM 2.5 mg/dL (0.6-1.4); POTASSIUM 3.2 mmol/L (3.5-5.1); PROTEIN TOTAL SERUM 5.6 g/dL (6.0-8.3)
[2016-08-11 08:41] LABS: INR 1.3; PROTHROMBIN TIME (PATIENT) 13.6 SECONDS (9.6-11.5)
[2016-08-11 10:57] LABS: URINE SOURCE CATH
[2016-08-11 11:06] LABS: URINE APPEARANCE CLEAR; URINE BILIRUBIN NEG (NEG); URINE BLOOD 1+ (NEG); URINE COLOR YELLOW; URINE GLUCOSE NEG (NEG); URINE KETONE NEG (NEG); URINE LEUKOCYTE ESTERASE 1+ (NEG); URINE NITRATE NEG (NEG); URINE PH 5.5 (5-8); URINE PROTEIN 1+ (NEG); URINE SPECIFIC GRAVITY 1.016 (1.003-1.035)
[2016-08-11 11:11] LABS: CULTURE INDICATED? YES; U HYALINE CASTS AUWI 0-2 /[LPF]; URINE BACTERIA AUWI NEG (NEGATIVE); URINE SQUAMOUS EPITHELIAL CELL NONE SEEN /[HPF]
[2016-08-12 05:39] LABS: BASOPHIL% 0.5 % (0-2.5); EOSINOPHIL# 0.2 X10e3 (0-0.7); EOSINOPHIL% 6.3 % (0.0-7.0); HEMATOCRIT 21.3 % (38.0-50.0); HEMOGLOBIN 7.3 gm/dL (13.0-16.0); LYMPHOCYTE# 0.7 X10e3 (1.0-3.5); LYMPHOCYTE% 17.4 % (17.0-45.0); MEAN CELL VOLUME 103.6 FL (83-96); MEAN CORPUSCULAR HEMOGLOBIN 35.7 PG (28-34); MEAN CORPUSCULAR HGB CONC 34.4 g/dL (30-36); MEAN PLATELET VOLUME 9.6 FL (6.5-11.5); MONOCYTE# 0.2 X10e3 (0-1.0); MONOCYTE% 5.7 % (3.0-12.0); NEUTROPHIL# 2.7 X10e3 (1.5-7.1); NEUTROPHIL% 70.1 % (40-75); RED BLOOD COUNT 2.05 X10e (3.90-5.60); WHITE BLOOD COUNT 3.8 X10e3 (4.0-10.5)
[2016-08-12 05:49] LABS: DIFF IND NO; PLATELET COUNT 33 X10e3 (140-420)
[2016-08-12 06:19] LABS: ALBUMIN SERUM 2.3 g/dL (3.5-5.0); BILIRUBIN,TOTAL 1.5 mg/dL (0.2-2.0); BUN/CREATININE RATIO 17.82; CALCIUM SERUM 7.3 mg/dL (8.4-10.2); CREATININE SERUM 2.3 mg/dL (0.6-1.4); GLOM FILT RATE Estimated 29.8 mL/min (>60); MAGNESIUM 1.6 mg/dL (1.6-3.0); PHOSPHOROUS 2.8 mg/dL (2.5-4.6); POTASSIUM 3.8 mmol/L (3.5-5.1); PROTEIN TOTAL SERUM 5.7 g/dL (6.0-8.3)
[2016-08-12 16:10] LABS: ARTERIAL BLD GAS O2 SATURATION 98.2 % (90.0-100.0); ARTERIAL BLOOD GAS CARBOXY HB 1.1 %sat (0.0-9.0); ARTERIAL BLOOD GAS HCO3 23.2 mmol/L; ARTERIAL BLOOD GAS MET HB 1.1 %sat (0.0-2.0); ARTERIAL BLOOD GAS pH 7.235 (7.350-7.450)
[2016-08-12 16:13] LABS: ARTERIAL BLOOD GAS ART SITE RIGHT RADIAL; ARTERIAL BLOOD GAS DELIVERY VENT; ARTERIAL BLOOD GAS PCO2 54.9 mmHg (35.0-45.0); ARTERIAL BLOOD GAS VENT MODE AC; ARTERIAL DRAW? YES
[2016-08-12 19:38] LABS: ARTERIAL BLD GAS O2 SATURATION 98.4 % (90.0-100.0); ARTERIAL BLOOD GAS CARBOXY HB 0.9 %sat (0.0-9.0); ARTERIAL BLOOD GAS HCO3 24.5 mmol/L; ARTERIAL BLOOD GAS MET HB 0.6 %sat (0.0-2.0); ARTERIAL BLOOD GAS PCO2 44.8 mmHg (35.0-45.0); ARTERIAL BLOOD GAS pH 7.346 (7.350-7.450)
[2016-08-12 19:39] LABS: ARTERIAL BLOOD GAS ALLEN TEST NORMAL; ARTERIAL BLOOD GAS ART SITE LEFT RADIAL; ARTERIAL BLOOD GAS DELIVERY VENT; ARTERIAL BLOOD GAS VENT MODE AC; ARTERIAL DRAW? YES
[2016-08-13 04:47] LABS: ARTERIAL BLD GAS O2 SATURATION 98.2 % (90.0-100.0); ARTERIAL BLOOD GAS CARBOXY HB 0.9 %sat (0.0-9.0); ARTERIAL BLOOD GAS HCO3 24.8 mmol/L; ARTERIAL BLOOD GAS MET HB 0.6 %sat (0.0-2.0); ARTERIAL BLOOD GAS PCO2 42.8 mmHg (35.0-45.0); ARTERIAL BLOOD GAS pH 7.372 (7.350-7.450)
[2016-08-13 05:14] LABS: ARTERIAL BLOOD GAS ALLEN TEST NORMAL; ARTERIAL BLOOD GAS ART SITE LEFT RADIAL; ARTERIAL BLOOD GAS DELIVERY VENT; ARTERIAL BLOOD GAS VENT MODE AC; ARTERIAL DRAW? YES
[2016-08-13 05:56] LABS: BASOPHIL% 0.4 % (0-2.5); EOSINOPHIL# 0.1 X10e3 (0-0.7); EOSINOPHIL% 4.5 % (0.0-7.0); HEMATOCRIT 22.5 % (38.0-50.0); HEMOGLOBIN 7.6 gm/dL (13.0-16.0); LYMPHOCYTE# 0.5 X10e3 (1.0-3.5); LYMPHOCYTE% 14.4 % (17.0-45.0); MEAN CELL VOLUME 102.8 FL (83-96); MEAN CORPUSCULAR HEMOGLOBIN 34.8 PG (28-34); MEAN CORPUSCULAR HGB CONC 33.8 g/dL (30-36); MONOCYTE# 0.2 X10e3 (0-1.0); MONOCYTE% 7.5 % (3.0-12.0); NEUTROPHIL# 2.4 X10e3 (1.5-7.1); NEUTROPHIL% 73.2 % (40-75); RED BLOOD COUNT 2.19 X10e (3.90-5.60); RED CELL DISTRIBUTION WIDTH 19.2 % (11.0-15.5); WHITE BLOOD COUNT 3.2 X10e3 (4.0-10.5)
[2016-08-13 06:01] LABS: DIFF IND YES; PLATELET COUNT 43 X10e3 (140-420)
[2016-08-13 06:19] LABS: ANISOCYTOSIS MOD; PLATELET ESTIMATE DECREASED (NORMAL)
[2016-08-13 06:39] LABS: BUN/CREATININE RATIO 17.36; CALCIUM SERUM 7.3 mg/dL (8.4-10.2); CREATININE SERUM 1.9 mg/dL (0.6-1.4); GLOM FILT RATE Estimated 37.1 mL/min (>60); MAGNESIUM 1.9 mg/dL (1.6-3.0); PHOSPHOROUS 2.5 mg/dL (2.5-4.6); POTASSIUM 3.9 mmol/L (3.5-5.1)
[2016-08-14 05:04] LABS: ALBUMIN SERUM 2.2 g/dL (3.5-5.0); BILIRUBIN,TOTAL 2.4 mg/dL (0.2-2.0); BUN/CREATININE RATIO 16.11; CALCIUM SERUM 7.4 mg/dL (8.4-10.2); CREATININE SERUM 1.8 mg/dL (0.6-1.4); GLOM FILT RATE Estimated 39.5 mL/min (>60); MAGNESIUM 1.8 mg/dL (1.6-3.0); PHOSPHOROUS 2.3 mg/dL (2.5-4.6); PROTEIN TOTAL SERUM 5.5 g/dL (6.0-8.3)
[2016-08-14 05:07] LABS: BASOPHIL% 0.6 % (0-2.5); EOSINOPHIL# 0.2 X10e3 (0-0.7); EOSINOPHIL% 6.3 % (0.0-7.0); HEMATOCRIT 21.8 % (38.0-50.0); HEMOGLOBIN 7.2 gm/dL (13.0-16.0); LYMPHOCYTE# 0.6 X10e3 (1.0-3.5); LYMPHOCYTE% 22.3 % (17.0-45.0); MEAN CELL VOLUME 102.7 FL (83-96); MEAN CORPUSCULAR HEMOGLOBIN 34.1 PG (28-34); MEAN CORPUSCULAR HGB CONC 33.2 g/dL (30-36); MEAN PLATELET VOLUME 8.8 FL (6.5-11.5); MONOCYTE# 0.3 X10e3 (0-1.0); MONOCYTE% 11.9 % (3.0-12.0); NEUTROPHIL# 1.5 X10e3 (1.5-7.1); NEUTROPHIL% 58.9 % (40-75); RED BLOOD COUNT 2.12 X10e (3.90-5.60); RED CELL DISTRIBUTION WIDTH 19.3 % (11.0-15.5); WHITE BLOOD COUNT 2.6 X10e3 (4.0-10.5)
[2016-08-14 05:22] LABS: PLATELET COUNT 47 X10e3 (140-420)
[2016-08-14 05:23] LABS: DIFF IND NO
[2016-08-14 06:00] LABS: IRON SERUM 22 ug/dL (45-182); TOTAL IRON BINDING CAPACITY 153 ug/dL (252-460); TRANSFERRIN 110 mg/dL (180-329); TRANSFERRIN SATURATION 14 % (20-50)
[2016-08-14 06:47] LABS: FERRITIN 410 ng/mL (24-336)
[2016-08-14 06:51] LABS: FOLATE (FOLIC ACID) >23.6 ng/mL (>5.8)
[2016-08-14 11:16] LABS: ARTERIAL BLD GAS O2 SATURATION 97.5 % (90.0-100.0); ARTERIAL BLOOD GAS CARBOXY HB 1.5 %sat (0.0-9.0); ARTERIAL BLOOD GAS HCO3 24.6 mmol/L; ARTERIAL BLOOD GAS MET HB 0.8 %sat (0.0-2.0); ARTERIAL BLOOD GAS PCO2 40.6 mmHg (35.0-45.0)
[2016-08-14 11:17] LABS: ARTERIAL BLOOD GAS ART SITE RIGHT RADIAL; ARTERIAL BLOOD GAS DELIVERY VENT; ARTERIAL BLOOD GAS VENT MODE CPAP; ARTERIAL DRAW? YES
[2016-08-15 04:31] LABS: BASOPHIL% 0.6 % (0-2.5); EOSINOPHIL# 0.2 X10e3 (0-0.7); EOSINOPHIL% 7.8 % (0.0-7.0); HEMATOCRIT 23.4 % (38.0-50.0); HEMOGLOBIN 7.9 gm/dL (13.0-16.0); LYMPHOCYTE# 0.5 X10e3 (1.0-3.5); LYMPHOCYTE% 23.6 % (17.0-45.0); MEAN CELL VOLUME 103.5 FL (83-96); MEAN CORPUSCULAR HEMOGLOBIN 34.8 PG (28-34); MEAN CORPUSCULAR HGB CONC 33.6 g/dL (30-36); MEAN PLATELET VOLUME 8.2 FL (6.5-11.5); MONOCYTE# 0.3 X10e3 (0-1.0); NEUTROPHIL# 1.2 X10e3 (1.5-7.1); PLATELET COUNT 57 X10e3 (140-420); RED BLOOD COUNT 2.27 X10e (3.90-5.60); RED CELL DISTRIBUTION WIDTH 20.2 % (11.0-15.5); WHITE BLOOD COUNT 2.3 X10e3 (4.0-10.5)
[2016-08-15 04:41] LABS: DIFF IND NO
[2016-08-15 04:54] LABS: BUN/CREATININE RATIO 15.26; CALCIUM SERUM 7.7 mg/dL (8.4-10.2); CREATININE SERUM 1.9 mg/dL (0.6-1.4); GLOM FILT RATE Estimated 37.1 mL/min (>60); MAGNESIUM 1.8 mg/dL (1.6-3.0); PHOSPHOROUS 3.4 mg/dL (2.5-4.6); POTASSIUM 4.1 mmol/L (3.5-5.1)
[2016-08-15 08:53] LABS: ARTERIAL BLD GAS O2 SATURATION 95.8 % (90.0-100.0); ARTERIAL BLOOD GAS CARBOXY HB 1.3 %sat (0.0-9.0); ARTERIAL BLOOD GAS HCO3 26.6 mmol/L; ARTERIAL BLOOD GAS MET HB 1.2 %sat (0.0-2.0); ARTERIAL BLOOD GAS PCO2 41.4 mmHg (35.0-45.0); ARTERIAL BLOOD GAS pH 7.416 (7.350-7.450)
[2016-08-15 08:54] LABS: ARTERIAL BLOOD GAS ART SITE RIGHT RADIAL; ARTERIAL BLOOD GAS DELIVERY VENT; ARTERIAL BLOOD GAS VENT MODE CPAP; ARTERIAL DRAW? YES
[2016-08-16 03:53] LABS: ARTERIAL BLD GAS O2 SATURATION 98.4 % (90.0-100.0); ARTERIAL BLOOD GAS CARBOXY HB 1.1 %sat (0.0-9.0); ARTERIAL BLOOD GAS HCO3 28.6 mmol/L; ARTERIAL BLOOD GAS MET HB 0.5 %sat (0.0-2.0); ARTERIAL BLOOD GAS PCO2 45.6 mmHg (35.0-45.0); ARTERIAL BLOOD GAS pH 7.406 (7.350-7.450)
[2016-08-16 03:56] LABS: ARTERIAL BLOOD GAS ALLEN TEST NORMAL; ARTERIAL BLOOD GAS ART SITE RIGHT RADIAL; ARTERIAL BLOOD GAS DELIVERY VENT; ARTERIAL BLOOD GAS VENT MODE A/C; ARTERIAL DRAW? YES
[2016-08-16 04:40] LABS: BASOPHIL% 0.6 % (0-2.5); EOSINOPHIL# 0.2 X10e3 (0-0.7); EOSINOPHIL% 7.8 % (0.0-7.0); HEMOGLOBIN 7.5 gm/dL (13.0-16.0); LYMPHOCYTE# 0.6 X10e3 (1.0-3.5); LYMPHOCYTE% 21.5 % (17.0-45.0); MEAN CELL VOLUME 104.3 FL (83-96); MEAN CORPUSCULAR HGB CONC 32.6 g/dL (30-36); MEAN PLATELET VOLUME 8.5 FL (6.5-11.5); MONOCYTE# 0.3 X10e3 (0-1.0); MONOCYTE% 12.5 % (3.0-12.0); NEUTROPHIL# 1.6 X10e3 (1.5-7.1); NEUTROPHIL% 57.6 % (40-75); RED BLOOD COUNT 2.21 X10e (3.90-5.60); RED CELL DISTRIBUTION WIDTH 19.8 % (11.0-15.5); WHITE BLOOD COUNT 2.8 X10e3 (4.0-10.5)
[2016-08-16 04:41] LABS: DIFF IND NO; PLATELET COUNT 73 X10e3 (140-420)
[2016-08-16 04:59] LABS: BUN/CREATININE RATIO 18.09; CREATININE SERUM 2.1 mg/dL (0.6-1.4); GLOM FILT RATE Estimated 33.1 mL/min (>60); MAGNESIUM 2.1 mg/dL (1.6-3.0); PHOSPHOROUS 3.8 mg/dL (2.5-4.6); POTASSIUM 3.9 mmol/L (3.5-5.1)
[2016-08-17 04:00] LABS: ARTERIAL BLD GAS O2 SATURATION 97.7 % (90.0-100.0); ARTERIAL BLOOD GAS CARBOXY HB 1.2 %sat (0.0-9.0); ARTERIAL BLOOD GAS HCO3 30.9 mmol/L; ARTERIAL BLOOD GAS MET HB 0.9 %sat (0.0-2.0); ARTERIAL BLOOD GAS PCO2 45.5 mmHg (35.0-45.0)
[2016-08-17 04:15] LABS: ARTERIAL BLOOD GAS ALLEN TEST NORMAL; ARTERIAL BLOOD GAS ART SITE RIGHT RADIAL; ARTERIAL BLOOD GAS DELIVERY VENT; ARTERIAL BLOOD GAS VENT MODE A/C; ARTERIAL DRAW? YES
[2016-08-17 04:36] LABS: BASOPHIL% 0.6 % (0-2.5); EOSINOPHIL# 0.3 X10e3 (0-0.7); EOSINOPHIL% 5.6 % (0.0-7.0); HEMATOCRIT 23.9 % (38.0-50.0); HEMOGLOBIN 7.9 gm/dL (13.0-16.0); LYMPHOCYTE# 0.6 X10e3 (1.0-3.5); LYMPHOCYTE% 13.6 % (17.0-45.0); MEAN CORPUSCULAR HEMOGLOBIN 34.5 PG (28-34); MEAN CORPUSCULAR HGB CONC 33.2 g/dL (30-36); MONOCYTE# 0.4 X10e3 (0-1.0); MONOCYTE% 7.9 % (3.0-12.0); NEUTROPHIL# 3.3 X10e3 (1.5-7.1); NEUTROPHIL% 72.3 % (40-75); RED BLOOD COUNT 2.29 X10e (3.90-5.60); RED CELL DISTRIBUTION WIDTH 20.1 % (11.0-15.5)
[2016-08-17 04:37] LABS: PLATELET COUNT 93 X10e3 (140-420); WHITE BLOOD COUNT 4.6 X10e3 (4.0-10.5)
[2016-08-17 04:38] LABS: DIFF IND YES
[2016-08-17 05:04] LABS: PLATELET ESTIMATE DECREASED (NORMAL)
[2016-08-17 06:00] LABS: BUN/CREATININE RATIO 23.5; CALCIUM SERUM 8.3 mg/dL (8.4-10.2); PHOSPHOROUS 3.4 mg/dL (2.5-4.6); POTASSIUM 4.7 mmol/L (3.5-5.1)
[2016-08-17 07:59] LABS: ARTERIAL BLD GAS O2 SATURATION 99.1 % (90.0-100.0); ARTERIAL BLOOD GAS CARBOXY HB 0.8 %sat (0.0-9.0); ARTERIAL BLOOD GAS HCO3 30.6 mmol/L; ARTERIAL BLOOD GAS MET HB 0.6 %sat (0.0-2.0); ARTERIAL BLOOD GAS PCO2 49.3 mmHg (35.0-45.0); ARTERIAL BLOOD GAS pH 7.401 (7.350-7.450)
[2016-08-17 08:00] LABS: ARTERIAL BLOOD GAS ALLEN TEST NORMAL; ARTERIAL BLOOD GAS ART SITE RIGHT RADIAL; ARTERIAL BLOOD GAS DELIVERY VENT; ARTERIAL BLOOD GAS VENT MODE CPAP; ARTERIAL DRAW? YES
[2016-08-18 05:20] LABS: BASOPHIL% 0.8 % (0-2.5); EOSINOPHIL# 0.2 X10e3 (0-0.7); EOSINOPHIL% 5.5 % (0.0-7.0); HEMATOCRIT 23.3 % (38.0-50.0); HEMOGLOBIN 7.5 gm/dL (13.0-16.0); LYMPHOCYTE# 0.6 X10e3 (1.0-3.5); LYMPHOCYTE% 18.6 % (17.0-45.0); MEAN CELL VOLUME 104.4 FL (83-96); MEAN CORPUSCULAR HEMOGLOBIN 33.6 PG (28-34); MEAN CORPUSCULAR HGB CONC 32.2 g/dL (30-36); MEAN PLATELET VOLUME 8.6 FL (6.5-11.5); MONOCYTE# 0.3 X10e3 (0-1.0); MONOCYTE% 7.7 % (3.0-12.0); NEUTROPHIL# 2.2 X10e3 (1.5-7.1); NEUTROPHIL% 67.4 % (40-75); PLATELET COUNT 92 X10e3 (140-420); RED BLOOD COUNT 2.23 X10e (3.90-5.60); RED CELL DISTRIBUTION WIDTH 19.1 % (11.0-15.5); WHITE BLOOD COUNT 3.3 X10e3 (4.0-10.5)
[2016-08-18 05:28] LABS: DIFF IND NO
[2016-08-18 05:30] LABS: BUN/CREATININE RATIO 24.5; CALCIUM SERUM 8.6 mg/dL (8.4-10.2); POTASSIUM 4.1 mmol/L (3.5-5.1)
[2016-08-19 06:50] LABS: CALCIUM SERUM 8.6 mg/dL (8.4-10.2); MAGNESIUM 2.4 mg/dL (1.6-3.0); PHOSPHOROUS 3.5 mg/dL (2.5-4.6); POTASSIUM 4.9 mmol/L (3.5-5.1)
[2016-08-19 07:49] LABS: EOSINOPHIL# 0.2 X10e3 (0-0.7); EOSINOPHIL% 3.8 % (0.0-7.0); HEMATOCRIT 23.3 % (38.0-50.0); HEMOGLOBIN 7.7 gm/dL (13.0-16.0); LYMPHOCYTE# 0.9 X10e3 (1.0-3.5); LYMPHOCYTE% 19.2 % (17.0-45.0); MEAN CELL VOLUME 104.5 FL (83-96); MEAN CORPUSCULAR HEMOGLOBIN 34.6 PG (28-34); MEAN CORPUSCULAR HGB CONC 33.1 g/dL (30-36); MONOCYTE# 0.3 X10e3 (0-1.0); MONOCYTE% 6.9 % (3.0-12.0); NEUTROPHIL# 3.1 X10e3 (1.5-7.1); NEUTROPHIL% 69.1 % (40-75); PLATELET COUNT 105 X10e3 (140-420); RED BLOOD COUNT 2.23 X10e (3.90-5.60); WHITE BLOOD COUNT 4.5 X10e3 (4.0-10.5)
[2016-08-19 07:50] LABS: DIFF IND NO
[2016-08-19 19:33] LABS: URINE APPEARANCE CLEAR; URINE BILIRUBIN NEG (NEG); URINE BLOOD NEG (NEG); URINE COLOR DK YELLOW; URINE GLUCOSE NEG (NEG); URINE KETONE NEG (NEG); URINE LEUKOCYTE ESTERASE 1+ (NEG); URINE NITRATE NEG (NEG); URINE PROTEIN TRACE (NEG); URINE SPECIFIC GRAVITY 1.016 (1.003-1.035)
[2016-08-19 19:42] LABS: CULTURE INDICATED? YES; U HYALINE CASTS AUWI 0-2 /[LPF]; URBCS1 AUWI 0-2 /[HPF] (0-2); URINE BACTERIA AUWI NEG (NEGATIVE); URINE SQUAMOUS EPITHELIAL CELL NONE SEEN /[HPF]
[2016-08-20 06:36] LABS: BASOPHIL% 0.8 % (0-2.5); EOSINOPHIL# 0.2 X10e3 (0-0.7); EOSINOPHIL% 4.6 % (0.0-7.0); HEMATOCRIT 24.3 % (38.0-50.0); HEMOGLOBIN 7.9 gm/dL (13.0-16.0); LYMPHOCYTE# 0.7 X10e3 (1.0-3.5); MEAN CELL VOLUME 104.5 FL (83-96); MEAN CORPUSCULAR HEMOGLOBIN 34.1 PG (28-34); MEAN CORPUSCULAR HGB CONC 32.6 g/dL (30-36); MEAN PLATELET VOLUME 8.3 FL (6.5-11.5); MONOCYTE# 0.3 X10e3 (0-1.0); NEUTROPHIL# 2.8 X10e3 (1.5-7.1); NEUTROPHIL% 70.6 % (40-75); PLATELET COUNT 110 X10e3 (140-420); RED BLOOD COUNT 2.33 X10e (3.90-5.60); RED CELL DISTRIBUTION WIDTH 19.5 % (11.0-15.5)
[2016-08-20 06:52] LABS: DIFF IND NO
[2016-08-20 07:32] LABS: BUN/CREATININE RATIO 24.54; CREATININE SERUM 2.2 mg/dL (0.6-1.4); GLOM FILT RATE Estimated 31.3 mL/min (>60); MAGNESIUM 2.5 mg/dL (1.6-3.0); POTASSIUM 4.1 mmol/L (3.5-5.1)
[2016-08-21 04:53] LABS: BASOPHIL% 0.9 % (0-2.5); EOSINOPHIL# 0.2 X10e3 (0-0.7); EOSINOPHIL% 3.1 % (0.0-7.0); HEMATOCRIT 23.2 % (38.0-50.0); HEMOGLOBIN 7.4 gm/dL (13.0-16.0); LYMPHOCYTE% 16.9 % (17.0-45.0); MEAN CORPUSCULAR HEMOGLOBIN 33.6 PG (28-34); MEAN PLATELET VOLUME 9.3 FL (6.5-11.5); MONOCYTE# 0.4 X10e3 (0-1.0); MONOCYTE% 6.9 % (3.0-12.0); NEUTROPHIL# 4.1 X10e3 (1.5-7.1); NEUTROPHIL% 72.2 % (40-75); PLATELET COUNT 107 X10e3 (140-420); RED BLOOD COUNT 2.21 X10e (3.90-5.60); RED CELL DISTRIBUTION WIDTH 19.7 % (11.0-15.5); WHITE BLOOD COUNT 5.6 X10e3 (4.0-10.5)
[2016-08-21 04:54] LABS: DIFF IND YES
[2016-08-21 05:11] LABS: HYPOCHROMIA SL; PLATELET ESTIMATE DECREASED (NORMAL)
[2016-08-21 05:37] LABS: ARTERIAL BLD GAS O2 SATURATION 95.7 % (90.0-100.0); ARTERIAL BLOOD GAS CARBOXY HB 1.7 %sat (0.0-9.0); ARTERIAL BLOOD GAS HCO3 26.1 mmol/L; ARTERIAL BLOOD GAS MET HB 0.9 %sat (0.0-2.0); ARTERIAL BLOOD GAS PCO2 37.3 mmHg (35.0-45.0); ARTERIAL BLOOD GAS PO2 90.4 mmHg (80.0-100); ARTERIAL BLOOD GAS pH 7.453 (7.350-7.450)
[2016-08-21 05:49] LABS: ARTERIAL BLOOD GAS ALLEN TEST NORMAL; ARTERIAL BLOOD GAS ART SITE RIGHT RADIAL; ARTERIAL BLOOD GAS DELIVERY NASAL CANNULA; ARTERIAL DRAW? YES
[2016-08-21 06:03] LABS: BUN/CREATININE RATIO 28.57; CALCIUM SERUM 8.1 mg/dL (8.4-10.2); CREATININE SERUM 2.1 mg/dL (0.6-1.4); GLOM FILT RATE Estimated 33.1 mL/min (>60); MAGNESIUM 2.3 mg/dL (1.6-3.0); PHOSPHOROUS 4.2 mg/dL (2.5-4.6)
[2016-08-22 04:02] LABS: BUN/CREATININE RATIO 25.5; CALCIUM SERUM 7.8 mg/dL (8.4-10.2); MAGNESIUM 2.4 mg/dL (1.6-3.0); PHOSPHOROUS 3.7 mg/dL (2.5-4.6)
[2016-08-22 08:39] LABS: ARTERIAL BLD GAS O2 SATURATION 96.5 % (90.0-100.0); ARTERIAL BLOOD GAS CARBOXY HB 1.3 %sat (0.0-9.0); ARTERIAL BLOOD GAS MET HB 0.5 %sat (0.0-2.0); ARTERIAL BLOOD GAS PCO2 47.4 mmHg (35.0-45.0)
[2016-08-22 08:40] LABS: ARTERIAL BLOOD GAS ALLEN TEST NORMAL; ARTERIAL BLOOD GAS ART SITE LEFT RADIAL; ARTERIAL BLOOD GAS DELIVERY VENTURI; ARTERIAL DRAW? YES
[2016-08-22 14:27] LABS: ARTERIAL BLD GAS O2 SATURATION 95.5 % (90.0-100.0); ARTERIAL BLOOD GAS ALLEN TEST NORMAL; ARTERIAL BLOOD GAS ART SITE LEFT RADIAL; ARTERIAL BLOOD GAS CARBOXY HB 1.6 %sat (0.0-9.0); ARTERIAL BLOOD GAS DELIVERY VENTURI MASK; ARTERIAL BLOOD GAS HCO3 24.3 mmol/L; ARTERIAL BLOOD GAS MET HB 0.4 %sat (0.0-2.0); ARTERIAL BLOOD GAS PCO2 51.3 mmHg (35.0-45.0); ARTERIAL BLOOD GAS PO2 92.2 mmHg (80.0-100); ARTERIAL BLOOD GAS pH 7.283 (7.350-7.450); ARTERIAL DRAW? YES
[2016-08-22 16:57] LABS: ARTERIAL BLOOD GAS CARBOXY HB 1.3 %sat (0.0-9.0); ARTERIAL BLOOD GAS HCO3 23.9 mmol/L; ARTERIAL BLOOD GAS MET HB 0.4 %sat (0.0-2.0); ARTERIAL BLOOD GAS PCO2 45.6 mmHg (35.0-45.0); ARTERIAL BLOOD GAS pH 7.328 (7.350-7.450)
[2016-08-22 16:58] LABS: ARTERIAL BLOOD GAS ALLEN TEST NORMAL; ARTERIAL BLOOD GAS ART SITE LEFT RADIAL; ARTERIAL BLOOD GAS DELIVERY VENTURI MASK; ARTERIAL DRAW? YES
[2016-08-23 04:15] LABS: ARTERIAL BLD GAS O2 SATURATION 95.6 % (90.0-100.0); ARTERIAL BLOOD GAS CARBOXY HB 1.3 %sat (0.0-9.0); ARTERIAL BLOOD GAS HCO3 24.6 mmol/L; ARTERIAL BLOOD GAS MET HB 0.8 %sat (0.0-2.0); ARTERIAL BLOOD GAS PCO2 47.1 mmHg (35.0-45.0); ARTERIAL BLOOD GAS PO2 91.5 mmHg (80.0-100); ARTERIAL BLOOD GAS pH 7.326 (7.350-7.450)
[2016-08-23 04:20] LABS: ARTERIAL BLOOD GAS ART SITE RIGHT RADIAL; ARTERIAL BLOOD GAS DELIVERY NASAL CANNULA; ARTERIAL DRAW? YES
[2016-08-23 04:38] LABS: BASOPHIL% 0.9 % (0-2.5); EOSINOPHIL# 0.3 X10e3 (0-0.7); EOSINOPHIL% 6.3 % (0.0-7.0); HEMATOCRIT 21.5 % (38.0-50.0); LYMPHOCYTE# 0.9 X10e3 (1.0-3.5); LYMPHOCYTE% 20.3 % (17.0-45.0); MEAN CORPUSCULAR HEMOGLOBIN 34.1 PG (28-34); MEAN CORPUSCULAR HGB CONC 32.8 g/dL (30-36); MEAN PLATELET VOLUME 9.6 FL (6.5-11.5); MONOCYTE# 0.4 X10e3 (0-1.0); NEUTROPHIL# 2.8 X10e3 (1.5-7.1); NEUTROPHIL% 63.5 % (40-75); PLATELET COUNT 119 X10e3 (140-420); RED BLOOD COUNT 2.06 X10e (3.90-5.60); RED CELL DISTRIBUTION WIDTH 18.4 % (11.0-15.5); WHITE BLOOD COUNT 4.5 X10e3 (4.0-10.5)
[2016-08-23 04:40] LABS: DIFF IND NO
[2016-08-23 04:47] LABS: CALCIUM SERUM 7.8 mg/dL (8.4-10.2); MAGNESIUM 2.5 mg/dL (1.6-3.0); POTASSIUM 4.3 mmol/L (3.5-5.1)
[2016-08-24 05:04] LABS: BASOPHIL% 0.8 % (0-2.5); EOSINOPHIL# 0.4 X10e3 (0-0.7); EOSINOPHIL% 8.6 % (0.0-7.0); HEMATOCRIT 24.3 % (38.0-50.0); LYMPHOCYTE# 0.9 X10e3 (1.0-3.5); MEAN CORPUSCULAR HEMOGLOBIN 33.3 PG (28-34); MEAN CORPUSCULAR HGB CONC 33.1 g/dL (30-36); MEAN PLATELET VOLUME 9.2 FL (6.5-11.5); MONOCYTE# 0.4 X10e3 (0-1.0); MONOCYTE% 9.6 % (3.0-12.0); NEUTROPHIL# 2.8 X10e3 (1.5-7.1); PLATELET COUNT 138 X10e3 (140-420); RED BLOOD COUNT 2.42 X10e (3.90-5.60); RED CELL DISTRIBUTION WIDTH 18.9 % (11.0-15.5); WHITE BLOOD COUNT 4.6 X10e3 (4.0-10.5)
[2016-08-24 05:13] LABS: DIFF IND NO; MEAN CELL VOLUME 100.4 FL (83-96)
[2016-08-24 05:56] LABS: BUN/CREATININE RATIO 24.5; CALCIUM SERUM 8.3 mg/dL (8.4-10.2); POTASSIUM 4.4 mmol/L (3.5-5.1)
[2016-08-24 22:20] LABS: URINE APPEARANCE CLEAR; URINE BILIRUBIN NEG (NEG); URINE BLOOD 3+ (NEG); URINE COLOR DK YELLOW; URINE GLUCOSE NEG (NEG); URINE KETONE TRACE (NEG); URINE LEUKOCYTE ESTERASE TRACE (NEG); URINE NITRATE NEG (NEG); URINE PROTEIN 1+ (NEG); URINE SPECIFIC GRAVITY 1.022 (1.003-1.035); URINE UROBILINOGEN 0.2 MG/DL (NEG)
[2016-08-24 22:23] LABS: URBCS1 AUWI 100-200 /[HPF] (0-2); URINE BACTERIA AUWI NEG (NEGATIVE); URINE SQUAMOUS EPITHELIAL CELL NONE SEEN /[HPF]; UWBCS1 AUWI 0-2 (0-5)
[2016-08-26 08:07] LABS: ALBUMIN SERUM 2.2 g/dL (3.5-5.0); BUN/CREATININE RATIO 21.66; CALCIUM SERUM 8.5 mg/dL (8.4-10.2); CREATININE SERUM 1.8 mg/dL (0.6-1.4); GLOM FILT RATE Estimated 39.5 mL/min (>60); PHOSPHOROUS 3.4 mg/dL (2.5-4.6); POTASSIUM 4.4 mmol/L (3.5-5.1)
== END 2016-08-26 18:03 | DRG 853 ==
LOC: CED 15:37 → CEDOF 19:05 → CICCU2 23:40 → C3A PCU 08-24 14:30
PROVIDERS: Emergency Medicine; Family Medicine; Internal Medicine; Internal Medicine Medical Oncology; Internal Medicine Nephrology
PROC: 0QSK04Z Reposition Left Fibula with Internal Fixation Device, Open Approach (ICD-10-PCS; 2016-08-09)
PROC: 5A1955Z Respiratory Ventilation, Greater than 96 Consecutive Hours (ICD-10-PCS; 2016-08-09)
PROC: 0BH17EZ Insertion of Endotracheal Airway into Trachea, Via Natural or Artificial Opening (ICD-10-PCS; 2016-08-09)
PROC: 02HV33Z Insertion of Infusion Device into Superior Vena Cava, Percutaneous Approach (ICD-10-PCS; principal; 2016-08-11)
PROC: B518YZA Fluoroscopy of Superior Vena Cava using Other Contrast, Guidance (ICD-10-PCS; 2016-08-11)
PROC: B548ZZA Ultrasonography of Superior Vena Cava, Guidance (ICD-10-PCS; 2016-08-11)
PROC: 30233N1 Transfusion of Nonautologous Red Blood Cells into Peripheral Vein, Percutaneous Approach (ICD-10-PCS; 2016-08-12)
PROC: 6A551Z1 Pheresis of Leukocytes, Multiple (ICD-10-PCS; 2016-08-12)
PROC: 0DH67UZ Insertion of Feeding Device into Stomach, Via Natural or Artificial Opening (ICD-10-PCS; 2016-08-13)
PROC: B518YZA Fluoroscopy of Superior Vena Cava using Other Contrast, Guidance (ICD-10-PCS; 2016-08-19)
PROC: 02HV33Z Insertion of Infusion Device into Superior Vena Cava, Percutaneous Approach (ICD-10-PCS; 2016-08-19)
PROC: B548ZZA Ultrasonography of Superior Vena Cava, Guidance (ICD-10-PCS; 2016-08-19)
DX: A41.9 Sepsis, unspecified organism (principal); J96.21 Acute and chronic respiratory failure with hypoxia; J69.0 Pneumonitis due to inhalation of food and vomit; G92 Toxic encephalopathy; N17.9 Acute kidney failure, unspecified; J44.9 Chronic obstructive pulmonary disease, unspecified; F10.231 Alcohol dependence with withdrawal delirium; D61.818 Other pancytopenia; I13.0 Hypertensive heart and chronic kidney disease with heart failure and stage 1 through stage 4 chronic kidney disease, or unspecified chronic kidney disease; I50.32 Chronic diastolic (congestive) heart failure; N39.0 Urinary tract infection, site not specified; K70.30 Alcoholic cirrhosis of liver without ascites; K21.9 Gastro-esophageal reflux disease without esophagitis; E87.6 Hypokalemia; F39 Unspecified mood [affective] disorder; G62.9 Polyneuropathy, unspecified; E11.22 Type 2 diabetes mellitus with diabetic chronic kidney disease; F17.210 Nicotine dependence, cigarettes, uncomplicated; N18.3 Chronic kidney disease, stage 3 (moderate); Z79.84 Long term (current) use of oral hypoglycemic drugs; I25.10 Atherosclerotic heart disease of native coronary artery without angina pectoris; I27.2 Other secondary pulmonary hypertension; Z91.81 History of falling; G47.33 Obstructive sleep apnea (adult) (pediatric); M10.9 Gout, unspecified; Z79.82 Long term (current) use of aspirin; E66.9 Obesity, unspecified; Z66 Do not resuscitate; Z51.5 Encounter for palliative care; Z68.36 Body mass index [BMI] 36.0-36.9, adult; Y90.6 Blood alcohol level of 120-199 mg/100 ml
CPT/HCPCS: 36600; 70450; 71010; 71250; 73600; 73610; 74000; 74176; 76000; 76770; 76937; 77001; 80048; 80053; 80076; 80307; 81003; 82040; 82140; 82274; 82308; 82550; 82570; 82607; 82728; 82746; 82803; 82947; 83540; 83550; 83605; 83615; 83735; 83880; 83935; 84100; 84300; 84439; 84443; 85014; 85018; 85025; 85610; 85730; 86592; 86850; 86900; 86901; 86923; 87040; 87070; 87086; 87205; 93005; 93971; 94002; 94003; 94640; 94760; 94761; 96365; 99291; C1713; C1751; G0480; J0330; J0360; J0696; J1170; J1630; J1644; J1815; J1940; J1956; J2060; J2250; J2270; J2370; J2765; J3010; J3370; J3411; J3475; J3486; J3490; P9016; P9035; P9037